=== PATIENT | female | born 1940 | race Caucasian/White ===

== ENCOUNTER 2018-08-09 09:03 | Inpatient (IN) ==
--- NOTE | 2018-08-09 10:04 | ED ---
HPI General Chief complaint: Respiratory Symptoms Stated complaint: SOB complaint Time Seen by Provider: 08/09/18 09:17 History of Present Illness HPI narrative: Patient 77-year-old female presents emergency department with acute on chronic shortness of breath. Patient states she has been gradually worsening shortness of breath over the past 2 years but over the past 3 weeks is been rapidly worsening. States she went to see her primary care physician put her on a Medrol Dosepak and ordered a chest x-ray which she has not yet had done. She is calmly by her son who is concerned that the patient has had shortness of breath with only minimal exertion and walking only a few feet. No fevers, cough is productive of "sputum" which is clear. Symptoms moderate, gradually worsening, associated signs and symptoms in context as above Related Data Home Medications Medication Instructions Recorded Confirmed amlodipine 5 mg PO DAILY 08/09/18 08/09/18 apixaban [Eliquis] 5 mg PO BID 08/09/18 08/09/18 benzonatate 100 mg PO TID PRN 08/09/18 08/09/18 cetirizine 10 mg PO DAILY 08/09/18 08/09/18 doxazosin 2 mg PO DAILY 08/09/18 08/09/18 fenofibrate 160 mg PO DAILY 08/09/18 08/09/18 hydrochlorothiazide 25 mg PO DAILY 08/09/18 08/09/18 levothyroxine 50 mcg PO DAILY 08/09/18 08/09/18 lisinopril 20 mg PO DAILY 08/09/18 08/09/18 pantoprazole 40 mg PO DAILY 08/09/18 08/09/18 rosuvastatin 40 mg PO DAILY 08/09/18 08/09/18 Allergies Allergy/AdvReac Type Severity Reaction Status Date / Time No Known Allergies Allergy Verified 08/09/18 09:08 Review of Systems ROS: all other systems reviewed are negative [facility] Medical History Medical History COPD (chronic obstructive pulmonary disease) (Acute) GERD (gastroesophageal reflux disease) (Acute) Hypercholesterolemia (Acute) Hypertension (Acute) Hypothyroid (Acute) Surgical History Surgical History History of cholecystectomy (Acute) Social History Social History Substance History: No History of Abuse Second Hand Smoke Exposure: No Smoking Status: Former smoker How Often Do You Have a Drink Containing Alcohol: Monthly or less Recent Travel in [facility] within the Last 8 Weeks: No Recent Out of Country Travel within the Last 8 Weeks: No Immunization History Tetanus Immunization: Unsure Exam Narrative Exam Narrative: GENERAL: Well-developed well-nourished in no obvious distress SKIN: Focused skin assessment warm/dry. HEAD: Atraumatic. Normocephalic. EYES: Pupils equal and round. No scleral icterus. No injection or drainage. ENT: No nasal bleeding or discharge. Mucous membranes pink and moist. NECK: Trachea midline. No JVD. CARDIOVASCULAR: Regular rate and rhythm. No murmur appreciated. RESPIRATORY: No accessory muscle use. Clear to auscultation. Breath sounds equal bilaterally. GASTROINTESTINAL: Abdomen soft, non-tender, nondistended. Hepatic and splenic margins not palpable. MUSCULOSKELETAL: No obvious deformities. No clubbing. No cyanosis. No edema. NEUROLOGICAL: Awake and alert. No obvious cranial nerve deficits. Motor grossly within normal limits. Normal speech. PSYCHIATRIC: Appropriate mood and affect; insight and judgment normal. Course Initial Documented Vital Signs Temperature 97.7 F 08/09/18 09:06 Pulse Rate 94 H 08/09/18 09:06 Respiratory Rate 28 H 08/09/18 09:06 Blood Pressure 109/56 L 08/09/18 09:06 Pulse Oximetry 97 08/09/18 09:06 Last Documented Vital Signs Temperature 97.7 F 08/09/18 09:06 Pulse Rate 79 08/09/18 11:15 Respiratory Rate 20 08/09/18 11:15 Blood Pressure 135/61 08/09/18 11:15 Pulse Oximetry 95 08/09/18 10:15 Medical Decision Making MDM Narrative Medical decision making narrative: Patient room in the emergency department, appears only minimally short of breath which resolves upon rest. Significant laboratory finding of a hemoglobin of 6.6. Patient states she was told recently that she was mildly anemic but she is never had to have blood transfusion before. Denies any history of diarrhea denies any melena denies any blood in the stool. She appears quite well. Discussed the risk benefits complications and alternatives to blood transfusion and she is agreeable. 2 units of PRBCs have been ordered. Certainly I think that this level of anemia probably explains her symptoms. Her BNP is mildly elevated and her chest x-ray shows a mild effusion. She was given Rocephin azithromycin given the cough but more likely the patient also has some mild congestive heart failure. Will discuss with medical team for admission Patient fecal occult showed scant brown stool which is Hemoccult negative. No hemorrhoids. CT scan of the abdomen pelvis was added because the patient had been complaining of some distention. Medical Screen Exam Complete: Yes Emergency Medical Condition: Yes Lab Data Result diagrams: 08/09/18 10:00 08/09/18 10:00 Lab Results 08/09/18 08/09/18 08/09/18 Range/Units 10:00 10:00 10:00 WBC 9.6 (4.0-11.0) th/mm3 RBC 2.80 L (4.00-5.30) mil/mm3 Hgb 6.6 L* (11.6-15.3) gm/dL Hct 21.2 L (35.0-46.0) % MCV 75.7 L (80.0-100.0) fL MCH 23.7 L (27.0-34.0) pg MCHC 31.3 L (32.0-36.0) % RDW 17.9 H (11.6-17.2) % Plt Count 394 (150-450) th/mm3 MPV 7.9 (7.0-11.0) fL Neut % (Auto) 83.3 H (16.0-70.0) % Lymph % (Auto) 8.6 L (9.0-44.0) % [place] % (Auto) 7.8 (0.0-8.0) % Eos % (Auto) 0.1 (0.0-4.0) % Baso % (Auto) 0.2 (0.0-2.0) % Neut # (Auto) 8.0 H (1.8-7.7) th/mm3 Lymph # (Auto) 0.8 L (1.0-4.8) th/mm3 [place] # (Auto) 0.7 (0.0-0.9) th/mm3 Eos # (Auto) 0.0 (0.0-0.4) th/mm3 Baso # (Auto) 0.0 (0.0-0.2) th/mm3 WBC Differential . Differential Comment Auto diff final PT 11.3 (9.8-11.6) sec INR 1.1 Ratio APTT 28.0 (23.4-31.7) sec Sodium 139 (136-145) meq/L Potassium 3.9 (3.5-5.1) meq/L Chloride 103 (98-107) meq/L Carbon Dioxide 23.9 (21.0-32.0) meq/L Anion Gap 12 (5-15) meq/L BUN 19 H (7-18) mg/dL Creatinine 1.30 H (0.50-1.00) mg/dL Estimated GFR 40 L (>89) mL/min Random Glucose 133 H (74-106) mg/dL Calcium 8.8 (8.5-10.1) mg/dL Total Bilirubin 0.3 (0.2-1.0) mg/dL AST 5 L (15-37) U/L ALT 11 (10-53) U/L Alkaline Phosphatase 44 L (45-117) U/L Troponin I Less than 0.02 L (0.02-0.05) ng/mL B-Natriuretic Peptide (0-100) pg/mL Total Protein 7.0 (6.4-8.2) g/dL Albumin 3.3 L (3.4-5.0) g/dL Blood Type Blood Type Recheck Antibody Screen MTS Gel Crossmatch 08/09/18 08/09/18 08/09/18 Range/Units 10:40 10:53 10:53 WBC (4.0-11.0) th/mm3 RBC (4.00-5.30) mil/mm3 Hgb (11.6-15.3) gm/dL Hct (35.0-46.0) % MCV (80.0-100.0) fL MCH (27.0-34.0) pg MCHC (32.0-36.0) % RDW (11.6-17.2) % Plt Count (150-450) th/mm3 MPV (7.0-11.0) fL Neut % (Auto) (16.0-70.0) % Lymph % (Auto) (9.0-44.0) % [place] % (Auto) (0.0-8.0) % Eos % (Auto) (0.0-4.0) % Baso % (Auto) (0.0-2.0) % Neut # (Auto) (1.8-7.7) th/mm3 Lymph # (Auto) (1.0-4.8) th/mm3 [place] # (Auto) (0.0-0.9) th/mm3 Eos # (Auto) (0.0-0.4) th/mm3 Baso # (Auto) (0.0-0.2) th/mm3 WBC Differential Differential Comment PT (9.8-11.6) sec INR Ratio APTT (23.4-31.7) sec Sodium (136-145) meq/L Potassium (3.5-5.1) meq/L Chloride (98-107) meq/L Carbon Dioxide (21.0-32.0) meq/L Anion Gap (5-15) meq/L BUN (7-18) mg/dL Creatinine (0.50-1.00) mg/dL Estimated GFR (>89) mL/min Random Glucose (74-106) mg/dL Calcium (8.5-10.1) mg/dL Total Bilirubin (0.2-1.0) mg/dL AST (15-37) U/L ALT (10-53) U/L Alkaline Phosphatase (45-117) U/L Troponin I (0.02-0.05) ng/mL B-Natriuretic Peptide 420 H (0-100) pg/mL Total Protein (6.4-8.2) g/dL Albumin (3.4-5.0) g/dL Blood Type O Negative Blood Type Recheck Required Antibody Screen Negative MTS Gel Crossmatch See Detail Imaging Data Radiologist's impression: Chest X-Ray 08/09/18 09:33 CONCLUSION: Mild cardiomegaly with Central vascular prominence. Right infrahilar opacity which may represent subsegmental consolidation. Left basilar structure characteristic of a hiatal hernia. Discharge Plan Physicians Team ED Provider: Jeff Gomez Primary Care Provider: UNKNOWN, Rxs /Orders / Referrals /Forms Prescriptions: No Action cetirizine 10 mg Tablet 10 mg PO DAILY RF: 0 lisinopril 20 mg Tablet 20 mg PO DAILY RF: 0 amlodipine 5 mg Tablet 5 mg PO DAILY RF: 0 benzonatate 100 mg Capsule 100 mg PO TID PRN (Reason: Cough) RF: 0 levothyroxine 50 mcg Tablet 50 mcg PO DAILY RF: 0 doxazosin 2 mg Tablet 2 mg PO DAILY RF: 0 rosuvastatin 40 mg Tablet 40 mg PO DAILY RF: 0 fenofibrate 160 mg Tablet 160 mg PO DAILY RF: 0 apixaban [Eliquis] 5 mg Tablet 5 mg PO BID RF: 0 pantoprazole 40 mg Tablet,Delayed Release (Dr/Ec) 40 mg PO DAILY RF: 0 hydrochlorothiazide 25 mg Tablet 25 mg PO DAILY RF: 0 Status ED Status: Pending Admission
[2018-08-09 10:07] LABS: Baso % (Auto) 0.2 % (0.0-2.0); Eos % (Auto) 0.1 % (0.0-4.0); Lymph # (Auto) 0.8 th/mm3 (1.0-4.8); Lymph % (Auto) 8.6 % (9.0-44.0); Mean Corpuscular HGB Conc 31.3 % (32.0-36.0); Mean Corpuscular Hemoglobin 23.7 pg (27.0-34.0); Mean Corpuscular Volume 75.7 fL (80.0-100.0); Mean Platelet Volume 7.9 fL (7.0-11.0); Mono # (Auto) 0.7 th/mm3 (0.0-0.9); Mono % (Auto) 7.8 % (0.0-8.0); Neut % (Auto) 83.3 % (16.0-70.0); Platelet Count 394 th/mm3 (150-450); Red Cell Distribution Width 17.9 % (11.6-17.2); White Blood Count 9.6 th/mm3 (4.0-11.0)
--- NOTE | 2018-08-09 10:10 | XR ---
EXAM DATE: 08/09/2018 10:07 AM EST AGE/SEX: 77 years / Female INDICATIONS: . Short of Breath and winded upon walking. CLINICAL DATA: This is the patient's initial encounter. Patient reports that signs and symptoms have been present for 1 day and indicates a pain score of 0/10. MEDICAL/SURGICAL HISTORY: Chronic obstructive pulmonary disease. None. COMPARISON: [facility], XR CHEST PA AND LAT, 04/19/2016. . FINDINGS: Lungs are hypoaerated. Right infrahilar opacity has developed. Heart is mildly enlarged. Retrocardiac density characteristic of a hiatal hernia is noted. Mild central vascular prominence is noted. CONCLUSION: Mild cardiomegaly with Central vascular prominence. Right infrahilar opacity which may represent subsegmental consolidation. Left basilar structure characteristic of a hiatal hernia. Electronically signed by: Jay Brown MD Board Certified Radiologist 08/09/2018 10:09 AM EST
[2018-08-09 10:16] LABS: Hematocrit 21.2 % (35.0-46.0); Hemoglobin 6.6 gm/dL (11.6-15.3); INR 1.1 Ratio; Prothrombin Time 11.3 sec (9.8-11.6)
[2018-08-09 10:24] LABS: Albumin 3.3 g/dL (3.4-5.0); Anion Gap 12 meq/L (5-15); Aspartate Aminotransferase 5 U/L (15-37); Blood Urea Nitrogen 19 mg/dL (7-18); Calcium 8.8 mg/dL (8.5-10.1); Carbon Dioxide 23.9 meq/L (21.0-32.0); Chloride 103 meq/L (98-107); Glomerular Filtration Rate 40 mL/min (>89); Glucose,Random 133 mg/dL (74-106); Potassium 3.9 meq/L (3.5-5.1); Sodium 139 meq/L (136-145)
[2018-08-09 10:25] LABS: Alanine Aminotransferase 11 U/L (10-53)
[2018-08-09] MEDS ORDERED: Azithromycin Inj 500 MG in Sodium Chlor 0.9% Inj 250 ML IV.SIG ONE (10:27)
[2018-08-09 10:29] LABS: Alkaline Phosphatase 44 U/L (45-117)
[2018-08-09] MEDS ORDERED: Sodium Chlor 0.9% Inj 250 ML IV.SIG SCH (11:00)
--- NOTE | 2018-08-09 12:42 | CT ---
EXAM DATE: 08/09/2018 12:08 PM EST AGE/SEX: 77 years / Female INDICATIONS: Right upper quadrant pain and distention. CLINICAL DATA: This is the patient's initial encounter. Patient reports that signs and symptoms have been present for 4 - 6 days and indicates a pain score of 5/10. MEDICAL/SURGICAL HISTORY: Chronic obstructive pulmonary disease. Gastroesophageal reflux disea se. Hypertension. None. ORAL CONTRAST: No oral contrast ingested. RADIATION DOSE: 14.49 CTDI (mGy) COMPARISON: No prior exams available for comparison. TECHNIQUE: Multiple contiguous axial images were obtained through the abdomen and pelvis following b olus infusion of 97 ml Omnipaque 350 (iohexol) nonionic water-soluble contrast as a single exam dos e. No oral contrast ingested. Using automated exposure control and adjustment of the mA and/or kV ac cording to patient size, radiation dose was kept as low as reasonably achievable to obtain optimal di agnostic quality images. DICOM format image data is available electronically for review and comparis on. FINDINGS: Lower Lungs: The visualized lower lungs are clear. Liver: The liver has a homogeneous density without space-occupying lesion. There is no dilation of th e biliary tree. Post cholecystectomy clips are noted. Spleen: Homogeneous density without enlargement. Pancreas: Unremarkable without mass or calcification. Kidneys: Normal in size and shape. No evidence of mass or hydronephrosis. Adrenal Glands: Unremarkable. Aorta: Calcified plaque is evident throughout the abdominal aorta. There is focal plaque at the leonid gin of the celiac and superior mesenteric arteries. Mild to moderate stenosis is noted. Bowel/Mesentery: Scattered diverticula are present throughout the colon. There are no active inflamm atory changes. There is no evidence of ileus, free air or abnormal fluid collections. The bowel loops are grossly unremarkable. The cecum and sigmoid colon have a normal configuration. Abdominal Wall: Intact. Retroperitoneum: No evidence of adenopathy in the retrocrural, para-aortic, or deep pelvic regions. Bladder: Contours are smooth. Reproductive Organs: No abnormal masses or calcifications seen. Inguinal: The inguinal region is unremarkable without evidence of adenopathy. Bony Structures: Unremarkable. CONCLUSION: 1. Calcific atherosclerotic vascular disease with calcified plaque identified at the origin of the c eliac and superior mesenteric arteries. 2. Uncomplicated colonic diverticulosis. 3. No evidence of ileus, free air or abnormal fluid collections. 4. Status post cholecystectomy. Electronically signed by: Jay Brown MD Board Certified Radiologist 08/09/2018 12:41 PM EST
[2018-08-09 13:34] LABS: % Iron Saturation 1.8 % (20-50)
[2018-08-09] MEDS ORDERED: Acetaminophen 325 MG Tablet PO PRN (14:00)
[2018-08-09] MEDS ORDERED: hydrALAZINE 25 MG Tablet PO PRN ×2 (14:00→18:44)
--- NOTE | 2018-08-09 15:41 | P.HP ---
History of Present Illness Primary Care Physician: UNKNOWN Chief Complaint: Severe shortness of breath History of Present Illness: 77-year-old female with past medical history of hypertension presented to the ED for evaluation of worsening shortness of breath with minimal exertion times 3 weeks duration. She reports chronic shortness of breath over the past 2 years which has gotten worse recently. She was seen by her primary care physician's, and was prescribed Medrol Dosepak and a chest x- ray was ordered which has yet to be done. She presented today to the ED because shortness of breath is now worsening with only minimal exertion on walking less than few feet. Patient also complained of dry cough. Patient denies any chest pain or current GI bleed. In the ED, she was found to have H& H of 6.6/21.2 and a BNP of 420. Hemoccult was negative. Of note, patient is currently on Eliquis, however denies any history of DVT, PE or atrial fibrillation. Review of Systems All other systems reviewed negative except as stated in HPI [facility] - History History Provided By: Patient - Medical History Medical History: Medical History (Last Reviewed 08/10/18 @ 07:34 by Mehreen Washington) COPD (chronic obstructive pulmonary disease) GERD (gastroesophageal reflux disease) Hypercholesterolemia Hypertension Hypothyroid - Surgical History Surgical History: Surgical History (Last Reviewed 08/10/18 @ 07:34 by Mehreen Washington) History of cholecystectomy - Family History Family History: Family History (Last Updated 08/09/18 @ 15:28 by Clive Tapia MD) Other CAD (coronary artery disease) - Tobacco History Second Hand Smoke Exposure: No Tobacco Use In Past 30 Days: No Smoking Status: Former smoker - Alcohol History How Often Do You Have a Drink Containing Alcohol: Monthly or less - Substance Use History Substance History: No History of Abuse - Travel History Recent Travel in the [place] Within the Last 8 Weeks: No Recent Travel Out of the Country Within the Last 8 Weeks: No - Immunization History Tetanus Immunization: Unsure Medications and Allergies Active Medications: Active Medications Acetaminophen (Tylenol) 650 mg PO Q4H PRN PRN Reason: Temp > 100.4 Al Hydroxide/Mg Hydroxide (Milk Of Magnesia Liq) 30 ml PO Q12H PRN PRN Reason: Mild Constipation Albuterol (Duoneb Neb (Prn)) 1 ampul NEB Q2HR NEB PRN PRN Reason: SHORTNESS OF BREATH Amlodipine Besylate (Norvasc) 5 mg PO DAILY [facility] Atorvastatin Calcium (Lipitor) 80 mg PO DAILY [facility] Doxazosin Mesylate (Cardura) 2 mg PO DAILY [facility] Furosemide (Lasix Inj) 40 mg IV.PUSH ONCE PRN PRN Reason: Inbetween PRBC units Last Admin: 08/09/18 14:12 Dose: 40 mg Furosemide (Lasix Inj) 40 mg IV.PUSH BID@0900,1800 [facility] Hydralazine HCl (Apresoline) 25 mg PO TID PRN PRN Reason: SBP>160, DBP>90 Sodium Chloride (Ns Inj) 250 mls @ 15 mls/hr IV.SIG ONCE [facility] Stop: 08/10/18 03:39 Last Admin: 08/09/18 13:06 Dose: 15 mls/hr Levothyroxine Sodium (Synthroid) 50 mcg PO DAILY@0600 [facility] Lisinopril (Prinivil) 20 mg PO DAILY [facility] Non-Formulary Medication (Fenofibrate [Fenofibrate]) 160 mg PO DAILY [facility] Ondansetron HCl (Zofran Inj) 4 mg IV.PUSH Q6H PRN PRN Reason: NAUSEA OR VOMITING Pantoprazole Sodium (Protonix) 40 mg PO DAILY [facility] Sodium Chloride (Ns Flush) 2 ml IV.FLUSH UNSCH PRN PRN Reason: FLUSH AFTER USING IV ACCESS Last Admin: 08/09/18 14:13 Dose: 2 ml Sodium Chloride (Ns Flush) 2 ml IV.FLUSH BID [facility] Sodium Chloride (Ns Flush) 2 ml IV.FLUSH PRN PRN PRN Reason: FLUSH AFTER USING IV ACCESS Allergies Allergy/AdvReac Type Severity Reaction Status Date / Time No Known Allergies Allergy Verified 08/09/18 09:08 Home Medications Medication Instructions Recorded Confirmed Type amlodipine 5 mg PO DAILY 08/09/18 08/09/18 History apixaban [Eliquis] 5 mg PO BID 08/09/18 08/09/18 History benzonatate 100 mg PO TID PRN 08/09/18 08/09/18 History cetirizine 10 mg PO DAILY 08/09/18 08/09/18 History doxazosin 2 mg PO DAILY 08/09/18 08/09/18 History fenofibrate 160 mg PO DAILY 08/09/18 08/09/18 History hydrochlorothiazide 25 mg PO DAILY 08/09/18 08/09/18 History levothyroxine 50 mcg PO DAILY 08/09/18 08/09/18 History lisinopril 20 mg PO DAILY 08/09/18 08/09/18 History pantoprazole 40 mg PO DAILY 08/09/18 08/09/18 History rosuvastatin 40 mg PO DAILY 08/09/18 08/09/18 History Exam Vital signs: Vital Signs 08/09/18 09:06 08/09/18 09:08 08/09/18 09:36 Temperature 97.7 F Pulse Rate 94 H 89 Respiratory Rate 28 H 20 Blood Pressure 109/56 L 133/70 Pulse Oximetry 97 97 97 08/09/18 10:15 08/09/18 11:15 08/09/18 13:16 Temperature 98.2 F Pulse Rate 79 79 100 H Respiratory Rate 20 20 17 Blood Pressure 129/60 135/61 120/56 L Pulse Oximetry 95 96 08/09/18 13:31 08/09/18 14:01 08/09/18 14:20 Temperature 98.3 F 98.8 F 98.6 F Pulse Rate 90 75 84 Respiratory Rate 20 20 20 Blood Pressure 125/57 L 147/67 H 144/60 H Pulse Oximetry 96 98 98 08/09/18 14:42 Temperature Pulse Rate 92 H Respiratory Rate 18 Blood Pressure 144/60 H Pulse Oximetry 96 Intake & Output 08/08/18 08/09/18 08/09/18 18:59 06:59 18:59 Intake Total 750 / 750 Balance 750 / 750 Weight 80.739 kg Intake: IV 350 / 350 Azithromycin Inj 500 MG In NS 250 / 250 Inj 250 ML @ 250 mls/hr IV.SIG ONCE ONE Rx#:[id number] Rocephin Inj 1,000 MG In NS Inj 100 / 100 100 ML @ 200 mls/hr IV.SIG ONCE ONE Rx#:[id number] Intake (Blood Product) Amt 400 / 400 Rbc As-3 Leukoreduced Unit 400 / 400 [id number] Rbc As-3 Leukoreduced Unit 0 / 0 [id number] Narrative: GENERAL: NAD SKIN: Warm and dry. HEAD: Atraumatic. Normocephalic. EYES: Pupils equal and round. No scleral icterus. No injection or drainage. ENT: No nasal bleeding or discharge. Mucous membranes pink and moist. NECK: Trachea midline. No JVD. CARDIOVASCULAR: Regular rate and rhythm. RESPIRATORY: No accessory muscle use. Clear to auscultation. Breath sounds equal bilaterally. GASTROINTESTINAL: Abdomen soft, non-tender, nondistended. Hepatic and splenic margins not palpable. MUSCULOSKELETAL: Extremities without clubbing, cyanosis, or edema. No obvious deformities. NEUROLOGICAL: Awake and alert. No obvious cranial nerve deficits. Motor grossly within normal limits. Five out of 5 muscle strength in the arms and legs. Normal speech. PSYCHIATRIC: Appropriate mood and affect; insight and judgment normal. Results - Labs CBC & Chem 7: 08/10/18 06:41 08/09/18 10:00 Labs: Laboratory Results - last 24 hr 08/09/18 08/09/18 08/09/18 10:00 10:00 10:00 WBC 9.6 RBC 2.80 L Hgb 6.6 L* Hct 21.2 L MCV 75.7 L MCH 23.7 L MCHC 31.3 L RDW 17.9 H Plt Count 394 MPV 7.9 Neut % (Auto) 83.3 H Lymph % (Auto) 8.6 L [place] % (Auto) 7.8 Eos % (Auto) 0.1 Baso % (Auto) 0.2 Neut # (Auto) 8.0 H Lymph # (Auto) 0.8 L [place] # (Auto) 0.7 Eos # (Auto) 0.0 Baso # (Auto) 0.0 WBC Differential . Differential Comment Auto diff final PT 11.3 INR 1.1 APTT 28.0 Sodium 139 Potassium 3.9 Chloride 103 Carbon Dioxide 23.9 Anion Gap 12 BUN 19 H Creatinine 1.30 H Estimated GFR 40 L Random Glucose 133 H Calcium 8.8 Iron TIBC % Saturation Ferritin Total Bilirubin 0.3 AST 5 L ALT 11 Alkaline Phosphatase 44 L Troponin I Less than 0.02 L B-Natriuretic Peptide Total Protein 7.0 Albumin 3.3 L Blood Type Blood Type Recheck Antibody Screen MTS Gel Crossmatch 08/09/18 08/09/18 08/09/18 10:00 10:40 10:53 WBC RBC Hgb Hct MCV MCH MCHC RDW Plt Count MPV Neut % (Auto) Lymph % (Auto) [place] % (Auto) Eos % (Auto) Baso % (Auto) Neut # (Auto) Lymph # (Auto) [place] # (Auto) Eos # (Auto) Baso # (Auto) WBC Differential Differential Comment PT INR APTT Sodium Potassium Chloride Carbon Dioxide Anion Gap BUN Creatinine Estimated GFR Random Glucose Calcium Iron 11 L TIBC 596 H % Saturation 1.8 L Ferritin 4 L Total Bilirubin AST ALT Alkaline Phosphatase Troponin I B-Natriuretic Peptide 420 H Total Protein Albumin Blood Type O Negative Blood Type Recheck Required Antibody Screen Negative MTS Gel Crossmatch 08/09/18 10:53 WBC RBC Hgb Hct MCV MCH MCHC RDW Plt Count MPV Neut % (Auto) Lymph % (Auto) [place] % (Auto) Eos % (Auto) Baso % (Auto) Neut # (Auto) Lymph # (Auto) [place] # (Auto) Eos # (Auto) Baso # (Auto) WBC Differential Differential Comment PT INR APTT Sodium Potassium Chloride Carbon Dioxide Anion Gap BUN Creatinine Estimated GFR Random Glucose Calcium Iron TIBC % Saturation Ferritin Total Bilirubin AST ALT Alkaline Phosphatase Troponin I B-Natriuretic Peptide Total Protein Albumin Blood Type Blood Type Recheck Antibody Screen MTS Gel Crossmatch See Detail - Imaging Impressions Chest X-Ray 08/09/18 09:33 CONCLUSION: Mild cardiomegaly with Central vascular prominence. Right infrahilar opacity which may represent subsegmental consolidation. Left basilar structure characteristic of a hiatal hernia. Abdomen/Pelvis CT 08/09/18 10:27 CONCLUSION: 1. Calcific atherosclerotic vascular disease with calcified plaque identified at the origin of the celiac and superior mesenteric arteries. 2. Uncomplicated colonic diverticulosis. 3. No evidence of ileus, free air or abnormal fluid collections. 4. Status post cholecystectomy. Caprini VTE Risk Assessment Caprini VTE Risk Assessment: Moderate/High Risk (score >= 2) Caprini Risk Assessment Model: Point Value = 1 Point Value = 2 Point Value = 3 Point Value = 5 Age 41-60 Minor surgery BMI > 25 kg/m2 Swollen legs Varicose veins or History of unexplained or recurrent spontaneous Oral contraceptives or hormone replacement Sepsis (< 1 month) Serious lung disease, including pneumonia (< 1 month) Abnormal pulmonary function Acute myocardial infarction Congestive heart failure (< 1 month) History of inflammatory bowel disease Medical patient at bed rest Age 61-74 Arthroscopic surgery Major open surgery (> 45 min) Laparoscopic surgery (> 45 min) Malignancy Confined to bed (> 72 hours) Immobilizing plaster cast Central venous access Age >= 75 History of VTE Family history of VTE Factor V Leiden Prothrombin [id number] Lupus anticoagulant Anticardiolipin antibodies Elevated serum homocysteine Heparin-induced thrombocytopenia Other congenital or acquired thrombophilia Stroke (< 1 month) Elective arthroplasty Hip, pelvis, or leg fracture Acute spinal cord injury (< 1 month) Prophylaxis Regimen: Total Risk Factor Score Risk Level Prophylaxis Regimen 0-1 Low Early ambulation 2 Moderate Order ONE of the following: *Sequential Compression Device (SCD) *Heparin 5000 units SQ BID 3-4 Higher Order ONE of the following medications: *Heparin 5000 units SQ TID *Enoxaparin/Lovenox 40 mg SQ daily (WT < 150 kg, CrCl > 30 mL/min) *Enoxaparin/Lovenox 30 mg SQ daily (WT < 150 kg, CrCl > 10-29 mL/min) *Enoxaparin/Lovenox 30 mg SQ BID (WT < 150 kg, CrCl > 30 mL/min) AND/OR *Sequential Compression Device (SCD) 5 or more Highest Order ONE of the following medications: *Heparin 5000 units SQ TID (Preferred with Epidurals) *Enoxaparin/Lovenox 40 mg SQ daily (WT < 150 kg, CrCl > 30 mL/min) *Enoxaparin/Lovenox 30 mg SQ daily (WT < 150 kg, CrCl > 10-29 mL/min) *Enoxaparin/Lovenox 30 mg SQ BID (WT < 150 kg, CrCl > 30 mL/min) AND *Sequential Compression Device (SCD) Assessment and Plan - Plan 67-year-old female with Symptomatic anemia Hemoccult negative Transfused 2 units of packed red blood cell, give Lasix IV x1 in between Check iron studies, ferritin, B12 level Hold Eliquis Recommend outpatient follow-up with GI H&H monitoring CHF exacerbation of unknown type Chest x-ray noted and reviewed by me with finding of Mild cardiomegaly with Central vascular prominence Will start Lasix 20 mg IV every 12 hours Strict I's and O's Check 2D echo and resume RODRI inhibitor Dyspnea Multifactorial In The absence of chest pain, will hold on CTA pulmonary to r/o PE Treatment as an above 2D echo pending DuoNeb as needed Hypertension Resume outpatient medications Abdominal pain Abdominal CT noted and reviewed by me without any evidence of ileus, free air or abnormal fluid collections Conservative management Chest x-ray with finding of Right infrahilar opacity which may represent subsegmental consolidation. However patient currently afebrile and no leukocytosis, therefore will hold on continue antibiotics Continue to monitor clinical response Hyperlipidemia Resume Lipitor Hypothyroidism Check TSH and free T4 Resume Synthroid Patient is currently on Eliquis however denies any history of PE, DVT or A. fib
[2018-08-09 16:27] LABS: Free T4 (Free Thyroxine) 1.36 ng/dL (0.76-1.46); Vitamin B12 1793 pg/mL (193-986)
--- NOTE | 2018-08-09 17:48 | ECG ---
Date Performed: 08/09/2018 Time Performed: 09:25:30 PTAGE: 77 years EKG: Sinus rhythm WITH MARKED SINUS ARRHYTHMIA MODERATE ST DEPRESSION ABNORMAL ECG NO PREVIOUS TRACING DOCTOR: Prashant Turner Interpretating Date/Time 08/09/2018 17:47:53
[2018-08-10] MEDS: Levothyroxine 50 MCG Tablet PO SCH (05:28)
[2018-08-10 07:11] LABS: Baso # (Auto) 0.1 th/mm3 (0.0-0.2); Baso % (Auto) 0.5 % (0.0-2.0); Eos # (Auto) 0.1 th/mm3 (0.0-0.4); Eos % (Auto) 1.2 % (0.0-4.0); Hematocrit 29.2 % (35.0-46.0); Hemoglobin 9.7 gm/dL (11.6-15.3); Lymph # (Auto) 1.6 th/mm3 (1.0-4.8); Lymph % (Auto) 13.8 % (9.0-44.0); Mean Corpuscular HGB Conc 33.3 % (32.0-36.0); Mean Corpuscular Hemoglobin 25.9 pg (27.0-34.0); Mean Corpuscular Volume 77.7 fL (80.0-100.0); Mean Platelet Volume 7.5 fL (7.0-11.0); Mono # (Auto) 1.6 th/mm3 (0.0-0.9); Mono % (Auto) 14.1 % (0.0-8.0); Neut # (Auto) 8.1 th/mm3 (1.8-7.7); Neut % (Auto) 70.4 % (16.0-70.0); Platelet Count 340 th/mm3 (150-450); Red Blood Count 3.76 mil/mm3 (4.00-5.30); Red Cell Distribution Width 19.5 % (11.6-17.2); White Blood Count 11.5 th/mm3 (4.0-11.0)
[2018-08-10 07:37] LABS: Alanine Aminotransferase 13 U/L (10-53); Albumin 3.2 g/dL (3.4-5.0); Anion Gap 8 meq/L (5-15); Aspartate Aminotransferase 10 U/L (15-37); Blood Urea Nitrogen 19 mg/dL (7-18); Calcium 8.4 mg/dL (8.5-10.1); Carbon Dioxide 31.6 meq/L (21.0-32.0); Chloride 99 meq/L (98-107); Glomerular Filtration Rate 45 mL/min (>89); Glucose,Random 91 mg/dL (74-106); Sodium 139 meq/L (136-145)
[2018-08-10 07:45] LABS: Alkaline Phosphatase 45 U/L (45-117); Total Protein 6.6 g/dL (6.4-8.2)
[2018-08-10] MEDS: Lisinopril 20 MG Tablet PO SCH (08:54)
[2018-08-10] MEDS: Fenofibrate 145 MG Tablet PO SCH (08:54)
[2018-08-10] MEDS: amLODIPine 5 MG Tablet PO SCH (08:55)
--- NOTE | 2018-08-10 12:52 | P.PNIM ---
Subjective Interval history: The patient is in the chair says she feels much better after the blood transfusion. Says she was able to walk to the bathroom however still with some shortness of breath. Says she is coughing and also she has noticed her voice has changed but that is all problem and I advised patient to follow- up with ENT as outpatient. She has a lower extremity edema. No wheezing at this time. No nausea or vomiting. Did not have a bowel movement. Says she does not know why she is taking Eliquis never had stroke, pulmonary embolism, A. fib or any arrhythmia and no DVT. Will discontinue Eliquis. Physical Exam Vital signs: Last Vital Signs Temp 98.4 F 08/10/18 08:41 Pulse 61 08/10/18 08:41 Resp 18 08/10/18 08:41 BP 122/55 L 08/10/18 08:41 Pulse Ox 95 08/10/18 08:41 Intake & Output 08/08/18 08/09/18 08/10/18 08/11/18 06:59 06:59 06:59 06:59 Intake Total 1880 / 1880 Output Total 1604 / 1604 Balance 276 / 276 Weight 81.3 kg Narrative: GENERAL: Elderly female, appears in NAD CARDIOVASCULAR: Regular rate and rhythm. RESPIRATORY: No accessory muscle use. Clear to auscultation. Breath sounds equal bilaterally. GASTROINTESTINAL: Abdomen soft, non-tender, nondistended. Hepatic and splenic margins not palpable. MUSCULOSKELETAL: Extremities without clubbing, cyanosis, or edema. No obvious deformities. NEUROLOGICAL: Awake and alert. No obvious cranial nerve deficits. Motor grossly within normal limits. Five out of 5 muscle strength in the arms and legs. Normal speech. Results Labs CBC & Chem 7: 08/10/18 06:41 08/10/18 06:41 Assessment and Plan Plan 67-year-old female with Symptomatic anemia Hemoccult negative S/p Transfusion 2 units of packed red blood cell, give Lasix IV x1 in between Check iron studies, ferritin, B12 level Hold Eliquis Recommend outpatient follow-up with GI H&H monitoring. So far H/H is stable CHF exacerbation of unknown type BNP elevated on admission Chest x-ray reviewed mild cardiomegaly with Central vascular prominence Lasix 20 mg IV every 12 hours Strict I's and O's 2D echo pnding and resume RODRI inhibitor Dyspnea Multifactorial In The absence of chest pain, will hold on CTA pulmonary to r/o PE Treatment as an above 2D echo pending DuoNeb as needed Hypertension Resume outpatient medications Abdominal pain Abdominal CT noted and reviewed by me without any evidence of ileus, free air or abnormal fluid collections Conservative management Chest x-ray with finding of Right infrahilar opacity which may represent subsegmental consolidation. However patient currently afebrile and no leukocytosis, therefore will hold on continue antibiotics Continue to monitor clinical response Hyperlipidemia Resume Lipitor Hypothyroidism Check TSH and free T4 Resume Synthroid DVT ppx scd.tds, hold chemical ppx to anemia. Patient is currently on Eliquis however denies any history of PE, DVT or A. fib. Will discontinue Eliquis Discussed with the patient, family at bedside very supportive, nurse. Progress Note: Quality VTE Deep Vein Thrombosis/Pulmonary Embolism Present on Admission: No
[2018-08-11] MEDS: Levothyroxine 50 MCG Tablet PO SCH (05:22)
[2018-08-11] MEDS: Lisinopril 20 MG Tablet PO SCH (09:07)
[2018-08-11] MEDS: amLODIPine 5 MG Tablet PO SCH (09:07)
[2018-08-11] MEDS: Fenofibrate 145 MG Tablet PO SCH (09:07)
--- NOTE | 2018-08-11 11:17 | P.PNIM ---
Subjective Interval history: The patient appears in not acute distress. However she is still coughing and she has changing her voice or hoarseness and would like to see the ENT doctor as inpatient. Will consult ENT for evaluation. Patient also with severe iron deficiency will start Venofer IV. GI also consulted and plans for colonoscopy on Saturday. Patient still weak and with some shortness of breath however feeling better after she received blood transfusion. No nausea or vomiting. No diarrhea constipation. Has some lower extremity edema improving. Physical Exam Vital signs: Last Vital Signs Temp 98.4 F 08/11/18 08:00 Pulse 80 08/11/18 10:05 Resp 18 08/11/18 10:05 BP 133/70 08/11/18 08:00 Pulse Ox 95 08/11/18 10:05 Intake & Output 08/09/18 08/10/18 08/11/18 08/12/18 06:59 06:59 06:59 06:59 Intake Total 1880 / 1880 Output Total 1604 / 1604 Balance 276 / 276 Weight 81.3 kg Narrative: GENERAL: Elderly female, appears in NAD CARDIOVASCULAR: Regular rate and rhythm. RESPIRATORY: No accessory muscle use. Clear to auscultation. Breath sounds equal bilaterally. GASTROINTESTINAL: Abdomen soft, non-tender, nondistended. Hepatic and splenic margins not palpable. MUSCULOSKELETAL: Extremities without clubbing, cyanosis, or edema. No obvious deformities. NEUROLOGICAL: Awake and alert. No obvious cranial nerve deficits. Motor grossly within normal limits. Five out of 5 muscle strength in the arms and legs. Normal speech. Results Labs CBC & Chem 7: 08/10/18 06:41 08/10/18 06:41 Assessment and Plan Plan 67-year-old female with Symptomatic anemia Hemoccult negative S/p Transfusion 2 units of packed red blood cell, give Lasix IV x1 in between Check iron studies, ferritin, B12 level . B12 is normal. Patien thowever with severe iron deficienecy , start venofer IV , will start iron supplement also to have at [facility], the patient says she is not sure why she is taking it. Consult GI, plan for colonoscopy on Saturday H&H monitoring. So far H/H is stable CHF exacerbation of unknown type BNP elevated on admission Chest x-ray reviewed mild cardiomegaly with Central vascular prominence Lasix 20 mg IV every 12 hours Strict I's and O's 2D echo pnding and resume RODRI inhibitor Dyspnea Multifactorial In The absence of chest pain, will hold on CTA pulmonary to r/o PE Treatment as an above 2D echo pending DuoNeb as needed Hypertension Resume outpatient medications Abdominal pain Abdominal CT noted and reviewed by me without any evidence of ileus, free air or abnormal fluid collections Conservative management Chest x-ray with finding of Right infrahilar opacity which may represent subsegmental consolidation. However patient currently afebrile and no leukocytosis, therefore will hold on continue antibiotics Continue to monitor clinical response Hyperlipidemia Resume Lipitor Hypothyroidism Check TSH and free T4 Resume Synthroid Hoarseness: Consult ENT DVT ppx scd.tds, hold chemical ppx to anemia. Patient is currently on Eliquis however denies any history of PE, DVT or A. fib. Will discontinue Eliquis Discussed with the patient, family at bedside very supportive, nurse. Progress Note: Quality VTE Deep Vein Thrombosis/Pulmonary Embolism Present on Admission: No
--- NOTE | 2018-08-11 14:27 | ECHRPT ---
Indication: SHORTNESS OF BREATH CONCLUSIONS Normal left ventricular size. Wall thickness is measured at the upper limits of normal. The left ventricular systolic function is normal with an estimated ejection fraction in the range of 55-60%. Moderate thickening of the mitral valve leaflets. Mitral annular calcification is present. Trace mitral valve regurgitation. Moderate mitral valve stenosis. Aortic valve sclerosis is present. Diffuse calcification of the aortic valve. Mild aortic valve stenosis. There is trace tricuspid valve regurgitation. The estimated pulmonary arterial pressure is 46 mmHg. BP: / HR: Rhythm: Sinus, PACs MEASUREMENTS (Male / Female) Normal Values Technical Quality:Poor 2D ECHO LV Diastolic Diameter PLAX 4.7 cm 4.2 - 5.9 / 3.9 - 5.3 cm LV Systolic Diameter PLAX 3.6 cm IVS Diastolic Thickness 1.1 cm 0.6 - 1.0 / 0.6 - 0.9 cm LVPW Diastolic Thickness 1.1 cm 0.6 - 1.0 / 0.6 - 0.9 cm LV Relative Wall Thickness 0.5 RV Internal Dim ED PLAX 3.0 cm LVOT Diameter 1.9 cm Aortic Root Diameter 2.6 cm DOPPLER AV Peak Velocity 302.5 cm/s AV Peak Gradient 36.6 mmHg AV Mean Gradient 20.0 mmHg AV Velocity Time Integral 63.9 cm LVOT Peak Velocity 165.5 cm/s LVOT Peak Gradient 11.0 mmHg LVOT Velocity Time Integral 37.0 cm AV Area Cont Eq vti 1.6 cm AV Area Cont Eq pk 1.6 cm MV Peak Velocity 190.8 cm/s MV Peak Gradient 14.6 mmHg MV Mean Velocity 118.8 cm/s MV Mean Gradient 6.6 mmHg Mitral E Point Velocity 159.0 cm/s Mitral A Point Velocity 154.0 cm/s Mitral E to A Ratio 1.0 LV E' Lateral Velocity 9.2 cm/s Mitral E to LV E' Lateral Ratio 17.4 LV E' Septal Velocity 6.5 cm/s Mitral E to LV E' Septal Ratio 24.3 TR Peak Velocity 299.0 cm/s TR Peak Gradient 35.8 mmHg Right Atrial Pressure 10.0 mmHg Pulmonary Artery Systolic Pressu 45.8 mmHg Right Ventricular Systolic Press 45.8 mmHg PV Peak Velocity 156.0 cm/s PV Peak Gradient 9.7 mmHg FINDINGS LEFT VENTRICLE Normal left ventricular size. Wall thickness is measured at the upper limits of normal. The left ventricular systolic function is normal with an estimated ejection fraction in the range of 55-60%. RIGHT VENTRICLE Normal right ventricular size and systolic function. LEFT ATRIUM The left atrial size is normal. RIGHT ATRIUM The right atrial size is normal. ATRIAL SEPTUM Normal atrial septal thickness without atrial level shunting by limited color doppler interrogation. AORTA The aortic root and proximal ascending aorta are normal in size on limited imaging. MITRAL VALVE Moderate thickening of the mitral valve leaflets. Mitral annular calcification is present. Trace mitral valve regurgitation. Moderate mitral valve stenosis. AORTIC VALVE Aortic valve sclerosis is present. Diffuse calcification of the aortic valve. Mild aortic valve stenosis. TRICUSPID VALVE There is trace tricuspid valve regurgitation. The estimated pulmonary arterial pressure is 46 mmHg. PULMONARY VALVE No pulmonary valve regurgitation or stenosis. VESSELS The inferior vena cava is normal in size. PERICARDIUM No pericardial effusion. Cayetano Sampson MD, FACC (Electronically Signed) Final Date:11 August 2018 14:26
--- NOTE | 2018-08-11 15:06 | P.CONGI ---
History of Present Illness Consult date: 08/11/18 Consult reason: Anemia Possible GI bleed Chief complaint: Anemia, SOB History of Present Illness: Patient is a pleasant 77-year-old female with past medical history significant for hypertension, COPD, GERD, hypercholesteremia and hypothyroidism. Surgical history significant for tubal ligation and cholecystectomy. Patient presented to [facility] emergency room with complaint of worsening shortness of breath with minimal exertion for 2-3 weeks. Patient endorsed shortness of breath but denied any fever or chills. Upon arrival to ED, patient was found to have hemoglobin of 6.6 hematocrit 21.2 , BNP of 420. Hemoccult stool was negative. Of note, patient states that she has been on Eliquis for the last 2-3 months. She denies any noted history of atrial fibrillation, PAD, DVT or CVA. Patient states last colonoscopy and EGD done 2 years ago per her recollection. EGD revealed hiatal hernia per patient. Colonoscopy did not reveal any abnormal findings per patient. 08/10/2018 hemoglobin 9.7 hematocrit 29.2 post 2 units of packed blood cell transfusion. Of note, iron studies reveal iron level 11 TIBC 596 saturation 1.8 ferritin level 4. Our service has been consulted to evaluate patient for anemia/possible GI bleeding. <Zuleyma Laureano - Last Filed: 08/11/18 14:53> Review of Systems All other systems reviewed negative except as stated in HPI <Zuleyma Laureano - Last Filed: 08/11/18 14:53> PMFSH - History History Provided By: Patient - Medical History Medical History: Medical History (Last Reviewed 08/10/18 @ 07:34 by Mehreen Washington) COPD (chronic obstructive pulmonary disease) GERD (gastroesophageal reflux disease) Hypercholesterolemia Hypertension Hypothyroid - Surgical History Surgical History: Surgical History (Last Reviewed 08/10/18 @ 07:34 by Mehreen Washington) History of cholecystectomy - Family History Family History: Family History (Last Updated 08/09/18 @ 15:28 by Clive Tapia MD) Other CAD (coronary artery disease) - Tobacco History Second Hand Smoke Exposure: No Tobacco Use In Past 30 Days: No Smoking Status: Former smoker Tobacco Type: Cigarettes - Alcohol History How Often Do You Have a Drink Containing Alcohol: Monthly or less - Substance Use History Substance History: No History of Abuse - Travel History Recent Travel in the [facility] Within the Last 8 Weeks: No Recent Travel Out of the Country Within the Last 8 Weeks: No - Immunization History Tetanus Immunization: Unsure Hx Influenza Vaccine This Season: No <LaureanoZuleyma lott - Last Filed: 08/11/18 14:53> - Medical History Medical History: Medical History (Last Reviewed 08/10/18 @ 07:34 by Mehreen Washington) COPD (chronic obstructive pulmonary disease) GERD (gastroesophageal reflux disease) Hypercholesterolemia Hypertension Hypothyroid - Surgical History Surgical History: Surgical History (Last Reviewed 08/10/18 @ 07:34 by Mehreen Washington) History of cholecystectomy - Family History Family History: Family History (Last Updated 08/09/18 @ 15:28 by Clive Tapia MD) Other CAD (coronary artery disease) <Donald Bassett - Last Filed: 08/12/18 10:53> Medications and Allergies Active Medications: Active Medications Acetaminophen (Tylenol) 650 mg PO Q4H PRN PRN Reason: Temp > 100.4 Al Hydroxide/Mg Hydroxide (Milk Of Marquita Prakash) 30 ml PO Q12H PRN PRN Reason: Mild Constipation Last Admin: 08/10/18 20:18 Dose: 30 ml Albuterol (Duoneb Neb (Prn)) 1 ampul NEB Q2HR NEB PRN PRN Reason: SHORTNESS OF BREATH Last Admin: 08/11/18 10:05 Dose: 1 ampul Amlodipine Besylate (Norvasc) 5 mg PO DAILY [facility] Last Admin: 08/11/18 09:07 Dose: 5 mg Atorvastatin Calcium (Lipitor) 80 mg PO DAILY [facility] Last Admin: 08/11/18 09:07 Dose: 80 mg Doxazosin Mesylate (Cardura) 2 mg PO DAILY [facility] Last Admin: 08/11/18 09:08 Dose: 2 mg Fenofibrate (Tricor) 145 mg PO DAILY [facility] Last Admin: 08/11/18 09:07 Dose: 145 mg Furosemide (Lasix Inj) 40 mg IV.PUSH ONCE PRN PRN Reason: Inbetween PRBC units Last Admin: 08/09/18 18:00 Dose: 40 mg Furosemide (Lasix Inj) 40 mg IV.PUSH BID@0900,1800 [facility] Last Admin: 08/11/18 09:08 Dose: 40 mg Hydralazine HCl (Apresoline) 25 mg PO TID PRN PRN Reason: SBP>160, DBP>90 Hydralazine HCl (Apresoline) 25 mg PO TID PRN PRN Reason: SBP>160, DBP>90 Iron Sucrose 200 mg/ Sodium (Chloride) 110 mls @ 110 mls/hr IV.SIG DAILY [facility] Stop: 08/13/18 09:59 Levothyroxine Sodium (Synthroid) 50 mcg PO DAILY@0600 [facility] Last Admin: 08/11/18 05:22 Dose: 50 mcg Lisinopril (Prinivil) 20 mg PO DAILY [facility] Last Admin: 08/11/18 09:07 Dose: 20 mg Ondansetron HCl (Zofran Inj) 4 mg IV.PUSH Q6H PRN PRN Reason: NAUSEA OR VOMITING Pantoprazole Sodium (Protonix) 40 mg PO DAILY [facility] Last Admin: 08/11/18 09:08 Dose: 40 mg Polyethylene Glycol/Electrolytes (Colyte Liq) 4,000 ml PO ONCE ONE Stop: 08/12/18 16:01 Potassium Chloride (Klor-Con 10) 20 meq PO DAILY [facility] Sodium Chloride (Ns Flush) 2 ml IV.FLUSH UNSCH PRN PRN Reason: FLUSH AFTER USING IV ACCESS Last Admin: 08/09/18 14:13 Dose: 2 ml Sodium Chloride (Ns Flush) 2 ml IV.FLUSH BID [facility] Last Admin: 08/11/18 09:08 Dose: 2 ml Sodium Chloride (Ns Flush) 2 ml IV.FLUSH PRN PRN PRN Reason: FLUSH AFTER USING IV ACCESS <Zuleyma Laureano - Last Filed: 08/11/18 14:53> Active Medications: Active Medications Acetaminophen (Tylenol) 650 mg PO Q4H PRN PRN Reason: Temp > 100.4 Al Hydroxide/Mg Hydroxide (Milk Of Magnesia Liq) 30 ml PO Q12H PRN PRN Reason: Mild Constipation Last Admin: 08/10/18 20:18 Dose: 30 ml Albuterol (Duoneb Neb (Prn)) 1 ampul NEB Q2HR NEB PRN PRN Reason: SHORTNESS OF BREATH Last Admin: 08/12/18 08:45 Dose: 1 ampul Amlodipine Besylate (Norvasc) 5 mg PO DAILY [facility] Last Admin: 08/12/18 09:40 Dose: Not Given Atorvastatin Calcium (Lipitor) 80 mg PO DAILY [facility] Last Admin: 08/12/18 09:38 Dose: 80 mg Doxazosin Mesylate (Cardura) 2 mg PO DAILY [facility] Last Admin: 08/12/18 09:40 Dose: Not Given Fenofibrate (Tricor) 145 mg PO DAILY [facility] Last Admin: 08/12/18 09:38 Dose: 145 mg Furosemide (Lasix Inj) 40 mg IV.PUSH ONCE PRN PRN Reason: Inbetween PRBC units Last Admin: 08/09/18 18:00 Dose: 40 mg Furosemide (Lasix Inj) 40 mg IV.PUSH BID@0900,1800 [facility] Last Admin: 08/12/18 09:39 Dose: 40 mg Hydralazine HCl (Apresoline) 25 mg PO TID PRN PRN Reason: SBP>160, DBP>90 Hydralazine HCl (Apresoline) 25 mg PO TID PRN PRN Reason: SBP>160, DBP>90 Iron Sucrose 200 mg/ Sodium (Chloride) 110 mls @ 110 mls/hr IV.SIG DAILY [facility] Stop: 08/13/18 09:59 Last Infusion: 08/11/18 18:29 Dose: Infused Levothyroxine Sodium (Synthroid) 50 mcg PO DAILY@0600 [facility] Last Admin: 08/12/18 06:17 Dose: 50 mcg Lisinopril (Prinivil) 20 mg PO DAILY [facility] Last Admin: 08/12/18 09:40 Dose: Not Given Ondansetron HCl (Zofran Inj) 4 mg IV.PUSH Q6H PRN PRN Reason: NAUSEA OR VOMITING Pantoprazole Sodium (Protonix) 40 mg PO DAILY [facility] Last Admin: 08/12/18 09:38 Dose: 40 mg Polyethylene Glycol/Electrolytes (Colyte Liq) 4,000 ml PO ONCE ONE Stop: 08/12/18 16:01 Potassium Chloride (Klor-Con 10) 20 meq PO DAILY [facility] Last Admin: 08/12/18 09:38 Dose: 20 meq Sodium Chloride (Ns Flush) 2 ml IV.FLUSH UNSCH PRN PRN Reason: FLUSH AFTER USING IV ACCESS Last Admin: 08/09/18 14:13 Dose: 2 ml Sodium Chloride (Ns Flush) 2 ml IV.FLUSH BID [facility] Last Admin: 08/12/18 09:40 Dose: 2 ml Sodium Chloride (Ns Flush) 2 ml IV.FLUSH PRN PRN PRN Reason: FLUSH AFTER USING IV ACCESS <Donald Bassett - Last Filed: 08/12/18 10:53> Allergies Allergy/AdvReac Type Severity Reaction Status Date / Time No Known Allergies Allergy Verified 08/09/18 09:08 Home Medications Medication Instructions Recorded Confirmed Type amlodipine 5 mg PO DAILY 08/09/18 08/09/18 History apixaban [Eliquis] 5 mg PO BID 08/09/18 08/09/18 History benzonatate 100 mg PO TID PRN 08/09/18 08/09/18 History cetirizine 10 mg PO DAILY 08/09/18 08/09/18 History doxazosin 2 mg PO DAILY 08/09/18 08/09/18 History fenofibrate 160 mg PO DAILY 08/09/18 08/09/18 History hydrochlorothiazide 25 mg PO DAILY 08/09/18 08/09/18 History levothyroxine 50 mcg PO DAILY 08/09/18 08/09/18 History lisinopril 20 mg PO DAILY 08/09/18 08/09/18 History pantoprazole 40 mg PO DAILY 08/09/18 08/09/18 History rosuvastatin 40 mg PO DAILY 08/09/18 08/09/18 History Exam Vital signs: Vital Signs 08/10/18 15:28 08/10/18 15:30 08/10/18 20:07 Temperature 98 F 98.2 F Pulse Rate 93 H 85 101 H Respiratory Rate 16 18 18 Blood Pressure 102/61 122/58 L Pulse Oximetry 97 95 97 08/10/18 20:31 08/10/18 23:55 08/11/18 05:33 Temperature 97.9 F Pulse Rate 91 H 84 99 H Respiratory Rate 17 17 17 Blood Pressure 115/56 L Pulse Oximetry 96 08/11/18 08:00 08/11/18 10:05 08/11/18 12:00 Temperature 98.4 F 98.1 F Pulse Rate 83 80 84 Respiratory Rate 18 18 18 Blood Pressure 133/70 98/49 L Pulse Oximetry 95 95 96 Intake & Output 08/10/18 08/11/18 08/11/18 18:59 06:59 18:59 Other: # Voids 3 Date of Last Bowel Movement 08/07/18 08/08/18 - Constitutional no acute distress, chronically ill appearing, cooperative - Routine HEENT Exam Head: Present: normocephalic - Routine Respiratory Exam Present: wheezes, crackles. Absent: respiratory distress Comments: O2 via nasal cannula Marked shortness of breath on minimal exertion BNP 420 - Routine Cardiovascular Exam Present: RRR, S1, S2 - Routine Abdominal Exam Present: soft, normoactive bowel sounds. Absent: tenderness, distended, guarding, firm - Routine Extremities Exam Absent: edema - Routine Skin Exam Present: dry, warm - Routine Neurological Exam Present: alert <Zuleyma Laureano - Last Filed: 08/11/18 14:53> Vital signs: Vital Signs 08/11/18 12:00 08/11/18 16:00 08/11/18 16:27 Temperature 98.1 F 98.2 F Pulse Rate 84 89 88 Respiratory Rate 18 18 16 Blood Pressure 98/49 L 93/51 L Pulse Oximetry 96 96 08/11/18 19:34 08/11/18 20:24 08/11/18 23:00 Temperature 98.3 F 98.5 F Pulse Rate 85 73 80 Respiratory Rate 18 18 18 Blood Pressure 131/57 L 101/49 L Pulse Oximetry 95 91 L 92 L 08/12/18 01:05 08/12/18 08:00 08/12/18 08:47 Temperature 97.9 F Pulse Rate 73 85 70 Respiratory Rate 18 18 18 Blood Pressure 105/51 L Pulse Oximetry 92 L 94 L Intake & Output 08/11/18 08/12/18 08/12/18 18:59 06:59 18:59 Intake Total 110 / 110 480 / 480 Balance 110 / 110 480 / 480 Weight 77.6 kg Intake: IV 110 / 110 Venofer Inj 200 MG In NS Inj 110 / 110 100 ML @ 110 mls/hr IV.SIG DAILY [facility] Rx#:[id number] Oral 480 / 480 Other: # Voids 2 4 Date of Last Bowel Movement 08/08/18 08/08/18 # Bowel Movements 0 <Donald Bassett - Last Filed: 08/12/18 10:53> Results - Labs CBC & Chem 7: 08/10/18 06:41 08/10/18 06:41 <Zuleyma Laureano - Last Filed: 08/11/18 14:53> - Labs CBC & Chem 7: 08/12/18 08:23 08/12/18 08:23 Labs: Laboratory Results - last 24 hr 08/12/18 08/12/18 08:23 08:23 WBC 8.4 RBC 4.20 Hgb 10.8 L Hct 33.9 L MCV 80.7 MCH 25.6 L MCHC 31.7 L RDW 20.3 H Plt Count 383 MPV 7.8 Neut % (Auto) 63.5 Lymph % (Auto) 9.8 [place] % (Auto) 15.5 H Eos % (Auto) 10.3 H Baso % (Auto) 0.9 Neut # (Auto) 5.3 Lymph # (Auto) 0.8 L [place] # (Auto) 1.3 H Eos # (Auto) 0.9 H Baso # (Auto) 0.1 WBC Differential . Differential Comment Auto diff final Sodium 134 L Potassium 3.1 L Chloride 96 L Carbon Dioxide 29.6 Anion Gap 8 BUN 16 Creatinine 1.21 H Estimated GFR 43 L Random Glucose 123 H Calcium 8.5 <Donald Bassett - Last Filed: 08/12/18 10:53> Assessment and Plan (1) Anemia Status: Acute Code(s): D64.9 - Anemia, unspecified (2) GI bleed Status: Acute Code(s): K92.2 - Gastrointestinal hemorrhage, unspecified - Plan Patient is a pleasant 77-year-old female with past medical history significant for hypertension, COPD, GERD, hypercholesteremia and hypothyroidism. Surgical history significant for tubal ligation and cholecystectomy. Patient presented to [facility] emergency room with complaint of worsening shortness of breath with minimal exertion for 2-3 weeks. Patient endorsed shortness of breath but denied any fever or chills. Upon arrival to ED, patient was found to have hemoglobin of 6.6 hematocrit 21.2, BNP of 420. Hemoccult stool was negative. Of note, patient states that she has been on Eliquis for the last 2- 3 months. She denies any noted history of atrial fibrillation, PAD, DVT or CVA. Patient states last colonoscopy and EGD done 2 years ago per her recollection. EGD revealed hiatal hernia per patient. Colonoscopy did not reveal any abnormal findings per patient. 08/10/2018 hemoglobin 9.7 hematocrit 29.2 post 2 units of packed blood cell transfusion. Of note, iron studies reveal iron level 11 TIBC 596 saturation 1.8 ferritin level 4. Our service has been consulted to evaluate patient for anemia/possible GI bleeding. Anemia-likely iron deficiency GI bleed Patient presents with worsening shortness of breath over the last 2-3 weeks. Hemoglobin 6.6 hematocrit 21.2 on arrival to ER. Hemoccult stool negative. Iron panel and admission H&H as noted above. Patient denies dark or black tarry stools. Denies any noted obvious bleeding. 08/10/2018 WBC 11.5 hemoglobin 9.7 hematocrit 29.2 platelet count 340 Total bilirubin 0.6 AST 10 ALT 13 alk phos 45 troponin less than 0.02 BUN 19 creatinine 1.1 GFR 45 08/09/2018 CT abdomen and pelvis reveal the followin. Calcific atherosclerotic vascular disease with calcified plaque identified at the origin of the celiac and superior mesenteric arteries. 2. Uncomplicated colonic diverticulosis. 3. No evidence of ileus, free air or abnormal fluid collections. 4. Status post cholecystectomy. Plan -Regular diet today -Clear liquid diet tomorrow -N.p.o. after midnight 08/13/2018 -GoLYTELY prep on 08/12/2018 at 1600 -Obtain consent for EGD and colonoscopy -Monitor for bleeding -Monitor hemoglobin hematocrit -PPI -Avoid NSAIDs and anticoagulants -Iron infusion as per attending for iron deficiency and area -Supportive care -Further recommendations to follow This patient has been seen by myself and Dr. Bassett and this note is written on his behalf - Attending Attestation Dr. Bassett <Zuleyma Laureano - Last Filed: 08/11/18 14:53> (1) Anemia Status: Acute Code(s): D64.9 - Anemia, unspecified (2) GI bleed Status: Acute Code(s): K92.2 - Gastrointestinal hemorrhage, unspecified - Attending Attestation Agree with above assessment and plan. Thank you for the consult. <Donald Bassett - Last Filed: 08/12/18 10:53>
[2018-08-11] MEDS: Iron Sucrose Inj 200 MG in Sodium Chlor 0.9% Inj 100 ML IV.SIG SCH (17:28)
[2018-08-12] MEDS: Levothyroxine 50 MCG Tablet PO SCH (06:17)
[2018-08-12 08:53] LABS: Calcium 8.5 mg/dL (8.5-10.1); Carbon Dioxide 29.6 meq/L (21.0-32.0); Potassium 3.1 meq/L (3.5-5.1)
[2018-08-12 09:06] LABS: Baso # (Auto) 0.1 th/mm3 (0.0-0.2); Baso % (Auto) 0.9 % (0.0-2.0); Eos # (Auto) 0.9 th/mm3 (0.0-0.4); Eos % (Auto) 10.3 % (0.0-4.0); Hematocrit 33.9 % (35.0-46.0); Hemoglobin 10.8 gm/dL (11.6-15.3); Lymph # (Auto) 0.8 th/mm3 (1.0-4.8); Lymph % (Auto) 9.8 % (9.0-44.0); Mean Corpuscular HGB Conc 31.7 % (32.0-36.0); Mean Corpuscular Hemoglobin 25.6 pg (27.0-34.0); Mean Corpuscular Volume 80.7 fL (80.0-100.0); Mean Platelet Volume 7.8 fL (7.0-11.0); Mono # (Auto) 1.3 th/mm3 (0.0-0.9); Mono % (Auto) 15.5 % (0.0-8.0); Neut # (Auto) 5.3 th/mm3 (1.8-7.7); Neut % (Auto) 63.5 % (16.0-70.0); Platelet Count 383 th/mm3 (150-450); Red Cell Distribution Width 20.3 % (11.6-17.2); White Blood Count 8.4 th/mm3 (4.0-11.0)
[2018-08-12] MEDS: Iron Sucrose Inj 200 MG in Sodium Chlor 0.9% Inj 100 ML IV.SIG SCH (09:30)
[2018-08-12] MEDS: Fenofibrate 145 MG Tablet PO SCH (09:38)
[2018-08-12] MEDS: amLODIPine 5 MG Tablet PO SCH (09:40)
[2018-08-12] MEDS: Lisinopril 20 MG Tablet PO SCH (09:40)
--- NOTE | 2018-08-12 10:01 | P.PNGI ---
Subjective Interval history: Patient sitting up in bedside chair, daughter at bedside. Patient denies any nausea, vomiting, abdominal pain. Has not noticed any mitch blood in her stool or melena. Physical Exam Vital signs: Vital Signs 08/11/18 10:05 08/11/18 12:00 08/11/18 16:00 Temperature 98.1 F 98.2 F Pulse Rate 80 84 89 Respiratory Rate 18 18 18 Blood Pressure 98/49 L 93/51 L Pulse Oximetry 95 96 96 08/11/18 16:27 08/11/18 19:34 08/11/18 20:24 Temperature 98.3 F Pulse Rate 88 85 73 Respiratory Rate 16 18 18 Blood Pressure 131/57 L Pulse Oximetry 95 91 L 08/11/18 23:00 08/12/18 01:05 08/12/18 08:00 Temperature 98.5 F 97.9 F Pulse Rate 80 73 85 Respiratory Rate 18 18 18 Blood Pressure 101/49 L 105/51 L Pulse Oximetry 92 L 92 L 08/12/18 08:47 Temperature Pulse Rate 70 Respiratory Rate 18 Blood Pressure Pulse Oximetry 94 L Intake & Output 08/11/18 08/12/18 08/12/18 18:59 06:59 18:59 Intake Total 110 / 110 480 / 480 Balance 110 / 110 480 / 480 Weight 77.6 kg Intake: IV 110 / 110 Venofer Inj 200 MG In NS Inj 110 / 110 100 ML @ 110 mls/hr IV.SIG DAILY [facility] Rx#:[id number] Oral 480 / 480 Other: # Voids 2 4 Date of Last Bowel Movement 08/08/18 # Bowel Movements 0 - Constitutional no acute distress - Routine HEENT Exam Head: Present: normocephalic, atraumatic - Routine Respiratory Exam Absent: accessory muscle use - Routine Abdominal Exam Present: soft, normoactive bowel sounds. Absent: tenderness, distended - Routine Skin Exam Present: dry, warm - Routine Neurological Exam Present: alert, oriented X3 Results - Labs CBC & Chem 7: 08/12/18 08:23 08/12/18 08:23 Laboratory Results - last 24 hr 08/12/18 08/12/18 08:23 08:23 WBC 8.4 RBC 4.20 Hgb 10.8 L Hct 33.9 L MCV 80.7 MCH 25.6 L MCHC 31.7 L RDW 20.3 H Plt Count 383 MPV 7.8 Neut % (Auto) 63.5 Lymph % (Auto) 9.8 [place] % (Auto) 15.5 H Eos % (Auto) 10.3 H Baso % (Auto) 0.9 Neut # (Auto) 5.3 Lymph # (Auto) 0.8 L [place] # (Auto) 1.3 H Eos # (Auto) 0.9 H Baso # (Auto) 0.1 WBC Differential . Differential Comment Auto diff final Sodium 134 L Potassium 3.1 L Chloride 96 L Carbon Dioxide 29.6 Anion Gap 8 BUN 16 Creatinine 1.21 H Estimated GFR 43 L Random Glucose 123 H Calcium 8.5 Assessment and Plan (1) Anemia Status: Acute Code(s): D64.9 - Anemia, unspecified (2) GI bleed Status: Acute Code(s): K92.2 - Gastrointestinal hemorrhage, unspecified - Plan Assessment Anemia with Hemoccult negative stoolspatient denies any mitch bleeding including hematochezia, melena, hematemesis and coffee-ground emesis. Patient reports that she has known history of any anemia but that it has always been slight and has never required treatment. Denies being on iron supplementation or B12 in the past. Denies previous blood transfusion. States that her PCP put her on Eliquis approximately 2-3 months ago, she is unsure of the indication. Patient presented to the emergency department with complaints of shortness of breath and overall weakness, hemoglobin on admission 6.6. Patient reports that she had a colonoscopy possibly at the end of last year, and does not remember any abnormal findings. She also believes that she has had an EGD in the past secondary to complaints of dysphasia and is unsure of any findings in this as well. Plan EGD/colonoscopy tomorrow Clear liquids today GoLYTELY prep N.p.o. after midnight Monitor H/H IV Venofer If GI workup negative, consider hematology workup Further recommendations to follow This patient has been seen and examined by myself and Dr. NGUYEN but this note is written on his behalf
[2018-08-12] MEDS ORDERED: PEG 3350/E-Lyte Soln 4000 ML Bottle PO ONE (16:00)
--- NOTE | 2018-08-12 16:41 | P.PNIM ---
Subjective Interval history: Ambulating says still with sob. Still with cough. No fever or chills. No n/v. Has BMs as is taking Golytely No fever or chills. Physical Exam Vital signs: Last Vital Signs Temp 98.5 F 08/12/18 12:00 Pulse 72 08/12/18 12:05 Resp 18 08/12/18 12:05 BP 101/57 L 08/12/18 12:00 Pulse Ox 96 08/12/18 12:00 Intake & Output 08/10/18 08/11/18 08/12/18 08/13/18 06:59 06:59 06:59 06:59 Intake Total 1880 / 1880 590 / 590 Output Total 1604 / 1604 Balance 276 / 276 590 / 590 Weight 81.3 kg 77.6 kg Narrative: GENERAL: Elderly female, appears in NAD CARDIOVASCULAR: Regular rate and rhythm. RESPIRATORY: No accessory muscle use. Clear to auscultation. Breath sounds equal bilaterally. GASTROINTESTINAL: Abdomen soft, non-tender, nondistended. Hepatic and splenic margins not palpable. MUSCULOSKELETAL: Extremities without clubbing, cyanosis, or edema. No obvious deformities. NEUROLOGICAL: Awake and alert. No obvious cranial nerve deficits. Motor grossly within normal limits. Five out of 5 muscle strength in the arms and legs. Normal speech. Results Labs CBC & Chem 7: 08/12/18 08:23 08/12/18 08:23 Assessment and Plan (1) Anemia: Code(s): D64.9 - Anemia, unspecified Status: Acute (2) GI bleed: Code(s): K92.2 - Gastrointestinal hemorrhage, unspecified Status: Acute Plan 67-year-old female with Symptomatic anemia Severe iron deficiency Hemoccult negative S/p Transfusion 2 units of packed red blood cell, give Lasix IV x1 in between Check iron studies, ferritin, B12 level . B12 is normal. Patien thowever with severe iron deficienecy , start venofer IV , will start iron supplement also to have at [facility], the patient says she is not sure why she is taking it. Consult GI, plan for colonoscopy 09/12/18 H&H monitoring. So far H/H is stable . Continue venofer IV EGD/Colonoscopy 08/13/18 CHF with preserved EF exacerbation Moderate Mitral stenosis. Mild Aortic calcification BNP elevated on admission Chest x-ray reviewed mild cardiomegaly with Central vascular prominence Lasix 20 mg IV every 12 hours Strict I's and O's 2D echo nl EF and resume RODRI inhibitor Dyspnea Multifactorial In The absence of chest pain, will hold on CTA pulmonary to r/o PE Treatment as an above 2D echo reviewed normal EF 55% DuoNeb as needed Add gabyallbarbara palomares Add IS Hypertension Resume outpatient medications Abdominal pain Abdominal CT noted and reviewed by me without any evidence of ileus, free air or abnormal fluid collections Conservative management Chest x-ray with finding of Right infrahilar opacity which may represent subsegmental consolidation. However patient currently afebrile and no leukocytosis, therefore will hold on continue antibiotics Continue to monitor clinical response EGD/Colonoscopy 08/13/18 Hyperlipidemia Resume Lipitor Hypothyroidism Check TSH and free T4 Resume Synthroid Hoarseness: Consult ENT , seen by ENT to follow up as OP with ent upon discharge. DVT ppx scd.tds, hold chemical ppx due to anemia. Patient is currently on Eliquis however denies any history of PE, DVT or A. fib. Discontinue Eliquis Discussed with the patient, family at bedside very supportive, nurse. Progress Note: Quality VTE Deep Vein Thrombosis/Pulmonary Embolism Present on Admission: No _ (1) GI bleed Qualifiers: GI bleed type/associated pathology: Gastritis type: (2) Anemia Qualifiers: Anemia type: Bone marrow failure anemia type: Chronic kidney disease stage : Folate deficiency anemia type: Hemolytic anemia type: Iron deficiency anemia type: Other causes of anemia: Vitamin B12 deficiency anemia type:
[2018-08-12] MEDS ORDERED: Acetaminophen/Codeine 120/12 MG Elixir 5 ML UDC PO PRN (18:51)
[2018-08-13] MEDS: Levothyroxine 50 MCG Tablet PO SCH (05:28)
[2018-08-13] MEDS ORDERED: Chlorhexidine Gluconate 2% 1 Pack (2 Cloths) TOPICAL ONE (06:55)
[2018-08-13 07:00] LABS: Baso # (Auto) 0.1 th/mm3 (0.0-0.2); Baso % (Auto) 0.6 % (0.0-2.0); Eos # (Auto) 0.7 th/mm3 (0.0-0.4); Hemoglobin 10.8 gm/dL (11.6-15.3); Lymph # (Auto) 0.9 th/mm3 (1.0-4.8); Lymph % (Auto) 8.4 % (9.0-44.0); Mean Corpuscular HGB Conc 31.9 % (32.0-36.0); Mean Corpuscular Hemoglobin 25.3 pg (27.0-34.0); Mean Corpuscular Volume 79.5 fL (80.0-100.0); Mean Platelet Volume 7.7 fL (7.0-11.0); Mono # (Auto) 1.7 th/mm3 (0.0-0.9); Mono % (Auto) 16.2 % (0.0-8.0); Neut # (Auto) 7.1 th/mm3 (1.8-7.7); Neut % (Auto) 67.8 % (16.0-70.0); Platelet Count 378 th/mm3 (150-450); Red Blood Count 4.28 mil/mm3 (4.00-5.30); Red Cell Distribution Width 21.4 % (11.6-17.2); White Blood Count 10.5 th/mm3 (4.0-11.0)
[2018-08-13] MEDS ORDERED: Sodium Chlor 0.9% Inj 500 ML IV.SIG SCH (07:00)
[2018-08-13 07:17] LABS: Calcium 8.5 mg/dL (8.5-10.1); Carbon Dioxide 32.6 meq/L (21.0-32.0); Potassium 3.4 meq/L (3.5-5.1)
--- NOTE | 2018-08-13 08:54 | P.PNIM ---
Subjective Interval history: Went for EGD and colonoscopy today. Patient was noted desaturating while in the procedures. Order stat chest x-ray, will start steroids and IV antibiotics Levaquin. We will add Mucinex as patient still with cough. No fever or chills. Abdominal pain improving. Physical Exam Vital signs: Last Vital Signs Temp 98.9 F 08/13/18 03:50 Pulse 81 08/13/18 03:50 Resp 17 08/13/18 03:50 BP 141/65 H 08/13/18 03:50 Pulse Ox 95 08/13/18 03:50 Intake & Output 08/11/18 08/12/18 08/13/18 08/14/18 06:59 06:59 06:59 06:59 Intake Total 590 / 590 910 / 910 Balance 590 / 590 910 / 910 Weight 77.6 kg 77.7 kg Narrative: GENERAL: Elderly female, appears in NAD CARDIOVASCULAR: Regular rate and rhythm. RESPIRATORY: No accessory muscle use. Clear to auscultation. Breath sounds equal bilaterally. GASTROINTESTINAL: Abdomen soft, non-tender, nondistended. Hepatic and splenic margins not palpable. MUSCULOSKELETAL: Extremities without clubbing, cyanosis, or edema. No obvious deformities. NEUROLOGICAL: Awake and alert. No obvious cranial nerve deficits. Motor grossly within normal limits. Five out of 5 muscle strength in the arms and legs. Normal speech. Results Labs CBC & Chem 7: 08/13/18 06:16 08/13/18 06:16 Assessment and Plan (1) Anemia: Code(s): D64.9 - Anemia, unspecified Status: Acute (2) GI bleed: Code(s): K92.2 - Gastrointestinal hemorrhage, unspecified Status: Acute Plan 67-year-old female with Symptomatic anemia Severe iron deficiency Hemoccult negative S/p Transfusion 2 units of packed red blood cell, give Lasix IV x1 in between Check iron studies, ferritin, B12 level . B12 is normal. Patien thowever with severe iron deficienecy , start venofer IV , will start iron supplement also to have at [facility], the patient says she is not sure why she is taking it. Consult GI, plan for colonoscopy 09/12/18 H&H monitoring. So far H/H is stable . Continue venofer IV EGD/Colonoscopy 08/13/18 CHF with preserved EF exacerbation Moderate Mitral stenosis. Mild Aortic calcification BNP elevated on admission Chest x-ray reviewed mild cardiomegaly with Central vascular prominence Lasix 20 mg IV every 12 hours Strict I's and O's 2D echo nl EF and resume RODRI inhibitor Hold blood pressure medications if low blood pressure Dyspnea Acute respiratory distress. Noted 08/13/18 desaturating while in the procedures. Patient requiring oxygen and never been on oxygen before. Still shortness of breath. Will need walking test at discharge Multifactorial In The absence of chest pain, will hold on CTA pulmonary to r/o PE Treatment as an above 2D echo reviewed normal EF 55% DuoNeb as needed Add tessallon pearles Add IS repeat chest x-ray 08/13/18 Start IV antibiotic Levaquin Start Solu-Medrol Add Mucinex We will consult pulmonology Hypertension Resume outpatient medications Abdominal pain Abdominal CT noted and reviewed by me without any evidence of ileus, free air or abnormal fluid collections Conservative management Chest x-ray with finding of Right infrahilar opacity which may represent subsegmental consolidation. However patient currently afebrile and no leukocytosis, therefore will hold on continue antibiotics Continue to monitor clinical response EGD/Colonoscopy 08/13/18 Hyperlipidemia Resume Lipitor Hypothyroidism Check TSH and free T4 Resume Synthroid Hoarseness: Consult ENT , seen by ENT to follow up as OP with ent upon discharge. DVT ppx scd.tds, hold chemical ppx due to anemia. Patient is currently on Eliquis however denies any history of PE, DVT or A. fib. Discontinue Eliquis Discussed with the patient, family at bedside very supportive, nurse. Progress Note: Quality VTE Deep Vein Thrombosis/Pulmonary Embolism Present on Admission: No _ (1) GI bleed Qualifiers: GI bleed type/associated pathology: Gastritis type: (2) Anemia Qualifiers: Anemia type: Bone marrow failure anemia type: Chronic kidney disease stage : Folate deficiency anemia type: Hemolytic anemia type: Iron deficiency anemia type: Other causes of anemia: Vitamin B12 deficiency anemia type:
--- NOTE | 2018-08-13 09:01 | MB ---
cc: Cornelius Pearce MD DATE: 08/12/2018 CHIEF COMPLAINT: Hoarseness. HISTORY OF PRESENT ILLNESS: This is a 77-year-old female who has been admitted for shortness of breath and severe congestive heart failure as well as anemia. She is currently being worked up for a possible GI bleed. She has been receiving transfusions. The patient reported after she was admitted that she has had hoarseness for more than 6 months and she was concerned that there could be something more ominous going on. She has not been seen by ENT or evaluated by ENT in the past for this. The patient denies any dysphagia or odynophagia. PAST MEDICAL HISTORY: Significant for COPD, GERD, hypertension, hypercholesterolemia, hypothyroidism, congestive heart failure. PAST SURGICAL HISTORY: Significant for cholecystectomy. SOCIAL HISTORY: She has no history of tobacco use. Occasional ethanol use. FAMILY HISTORY: No history of substance abuse. MEDICATIONS: Please see the MAR. PHYSICAL EXAMINATION: GENERAL: The patient was alert and oriented x3, in no acute distress, afebrile. VITAL SIGNS: Stable. She was resting comfortably in bed. HEENT: Exam reveals clear oral cavity and oropharynx. A flexible laryngoscopy at bedside showed interarytenoid pachydermia consistent with her reflux disease. Her vocal cords were mildly edematous. There were no lesions or ulcerations noted. Both vocal cords were moving normally and for the limited exam at bedside, no obvious lesions were noted. NECK: Exam reveals no palpable lymphadenopathy. ASSESSMENT AND PLAN: Patient with some evidence of reflux laryngitis, which may likely be the cause of her longstanding hoarseness. Would recommend continued workup for her possible gastrointestinal bleed. She would likely benefit from acid reflux medications. At this time, would recommend that she followup with ENT after discharge for further exam and for a more detailed laryngoscopy in the office. I have expressed these issues with the patient. She reports understanding and would like to follow up in the office. Thank you for this consultation. Cornelius Pearce MD ATT/kimberlee , 08:33 AM , 08:38 AM
--- NOTE | 2018-08-13 12:13 | GIPROC ---
[facility] [address] [facility]. [facility], [address] COLONOSCOPY PROCEDURE REPORT EXAM DATE: 08/13/2018 PATIENT NAME: Anita Rhoades MR #: [id number] BIRTHDATE: 1940 ENDOSCOPIST: Lloyd Clinton MD ORDER #: [id number] CHIEF RELAY TESTER: Wale Russo and Sophia Milner STATUS: inpatient INDICATIONS: The patient is a 77 yr old female here for a colonoscopy due to iron deficiency anemia PROCEDURE PERFORMED: Colonoscopy with ablation MEDICATIONS: Per Anesthesia and None. PREP QUALITY: poor ESTIMATED BLOOD LOSS: None CONSENT: The patient understands the risks and benefits of the procedure and understands that these risks include, but are not limited to: sedation, allergic reaction, infection, perforation and/or bleeding. Alternative means of evaluation and treatment include, among others: physical exam, x-rays, and/or surgical intervention. The patient elects to proceed with this endoscopic procedure. medical equipment was checked for proper function. Hand hygiene and appropriate measures for infection prevention was taken. After the risks, benefits and alternatives of the procedure were thoroughly explained, Informed consent was verified, confirmed and timeout was successfully executed by the treatment team. A digital exam was performed and revealed no abnormalities of the rectum The Pentax EC-[id number] endoscope was introduced through the anus and advanced to the cecum, which was identified by both the appendix and ileocecal valve. The instrument was then slowly withdrawn as the colon was fully examined. COLON FINDINGS: Moderate diverticulosis was noted throughout the entire examined colon. 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 Argon plasma coagulation was applied to the site. Retroflexed views revealed internal hemorrhoids and Retroflexed views revealed large internal hemorrhoids The scope was then completely withdrawn from the patient and the procedure terminated. PROCEDURE WITHDRAWAL TIME:8minutes ADVERSE EVENTS: There were no complications. IMPRESSIONS: 1. Moderate diverticulosis was noted throughout the entire examined colon 2. 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 Retroflexed views revealed internal hemorrhoids 4. Retroflexed views revealed large internal hemorrhoids 5. Was performed 6. Revealed no abnormalities of the rectum RECOMMENDATIONS: Monitor labs RECALL: Return 1 year Colonoscopy Colon prep poor Lloyd Clinton MD eSigned: Lloyd Clinton MD 08/13/2018 12:13 PM cc: PATIENT NAME: Anita Rhoades MR#: [id number]
--- NOTE | 2018-08-13 12:17 | GIPROC ---
[facility] [address] [facility]. [facility], [address] EGD PROCEDURE REPORT EXAM DATE: 08/13/2018 PATIENT NAME: Anita Rhoades MR #: [id number] BIRTHDATE: 1940 ATTENDING: Lloyd Clinton MD ORDER #: [id number] SURVEYING CREW STAKE RUNNER: Wale Russo and Sophia Milner STATUS: inpatient INDICATIONS: The patient is a 77 yr old female here for an EGD due to unexplained iron deficiency anemia PROCEDURE PERFORMED: EGD, diagnostic MEDICATIONS: Per Anesthesia and None. TOPICAL ANESTHETIC: none CONSENT: The patient understands the risks and benefits of the procedure and understands that these risks include, but are not limited to: sedation, allergic reaction, infection, perforation and/or bleeding. Alternative means of evaluation and treatment include, among others: physical exam, x-rays, and/or surgical intervention. The patient elects to proceed with this endoscopic procedure. medical equipment was checked for proper function. Hand hygiene and appropriate measures for infection prevention was taken. After the risks, benefits and alternatives of the procedure were thoroughly explained, Informed consent was verified, confirmed and timeout was successfully executed by the treatment team. The patient was anesthetized with topical anesthesia and the EC-[id number] (Pedi C) endoscope was introduced through the mouth and advanced to the second portion of the duodenum. Retroflexed views revealed a hiatal hernia The gastroscope was then slowly withdrawn and removed. STOMACH: The mucosa of the stomach appeared normal. ESOPHAGUS: There was a benign appearing stricture in the distal esophagus. The stricture was easily traversable. DUODENUM: The duodenal mucosa appeared normal in the entire duodenum. ADVERSE EVENTS: There were no complications. IMPRESSIONS: 1. The mucosa of the stomach appeared normal 2. 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 Normal duodenal mucosa in the entire duodenum 4. Retroflexed views revealed a hiatal hernia RECOMMENDATIONS: Continue PPI PATIENT CONDITION: stable DISPOSITION: Inpatient REPEAT EXAM: Return as needed for EGD Lloyd Clinton MD eSigned: Lloyd Clinton MD 08/13/2018 12:16 PM cc: PATIENT NAME: Anita Rhoades MR#: [id number]
[2018-08-13] MEDS ORDERED: guaiFENesin 600 MG ER Tablet PO ONE (14:15)
--- NOTE | 2018-08-13 14:23 | XR ---
EXAM DATE: 08/13/2018 2:13 PM EST AGE/SEX: 77 years / Female INDICATIONS: Shortness of breath. CLINICAL DATA: This is the patient's initial encounter. Patient reports that signs and symptoms have been present for 1 day and indicates a pain score of 0/10. MEDICAL/SURGICAL HISTORY: Chronic obstructive pulmonary disease. None. COMPARISON: [facility], CHEST 2V PA&LAT, 08/09/2018. . FINDINGS: Moderate compensated cardiomegaly with large hiatal hernia. There is no evidence consolidation, pleur al effusion or pneumothorax. The portion of the bony skeleton visualized is unremarkable. CONCLUSION: Moderate compensated cardiomegaly. Large hiatal hernia Electronically signed by: Mike Simon MD Board Certified Radiologist 08/13/2018 2:22 PM EST
[2018-08-13 14:25] LABS: ABG Base Excess 7.3 mmol/L (-2-2); ABG PCO2 46 mmHg (38-42); ABG PO2 81 mmHg (61-120)
[2018-08-13] MEDS ORDERED: MethylPREDNISolone Sod Succinate Inj 40 MG/ML Vial IV.PUSH ONE (14:30)
[2018-08-13] MEDS: Lisinopril 20 MG Tablet PO SCH (14:59)
[2018-08-13] MEDS: amLODIPine 5 MG Tablet PO SCH (14:59)
[2018-08-13] MEDS: Iron Sucrose Inj 200 MG in Sodium Chlor 0.9% Inj 100 ML IV.SIG SCH (15:04)
[2018-08-13] MEDS: Fenofibrate 145 MG Tablet PO SCH (16:57)
--- NOTE | 2018-08-13 20:08 | MB ---
cc: Abran Walker MD DATE: 08/13/2018 REQUESTING PHYSICIAN: Janet Reyes MD REASON FOR CONSULTATION: Shortness of breath and COPD. HISTORY OF PRESENT ILLNESS: Ms. Rhoades is a 77-year-old white female with history of COPD. She has chronic cough for many years and multiple allergies which keeps the cough going on. She does admit to hoarseness of voice and some heartburn. She has a history of COPD, uses nebulizer treatment and inhaler at home. She was started on Eliquis as outpatient. She is not sure what was the reason. Because of worsening of her shortness of breath, she came to the hospital. She was found to have significant anemia. The patient had blood transfusion done. She was seen by GI. She had a colonoscopy and upper endoscopy done. She feels her breathing is a little better now. LABORATORY DATA: She had a workup done. Her blood gas shows pH 7.45, pCO2 of 46, pO2 of 81, bicarbonate 32, saturation 94% on 3 L nasal cannula. Her Initial CBC: WBC count 9.6, hemoglobin 6.6, hematocrit 21.2, MCV 75, platelet count 394. Repeat one after blood transfusion, hemoglobin 10.8, hematocrit 34.0. Sodium 135, potassium 3.4, chloride 95, CO2 of 32, BUN 14, creatinine 1.0. PAST MEDICAL HISTORY: Significant for history of COPD, history of GERD, hypertension, hypothyroidism, history of cholecystectomy. MEDICATIONS: She is currently taking Tylenol with codeine cough syrup, nebulizer of albuterol and Atrovent, Lipitor 80 mg a day, Tessalon 100 mg every 8 hours, Cardura 2 mg a day, Tricor 145 mg daily, Lasix 40 mg IV push one time, Mucinex 600 mg twice a day, Levaquin 750 mg a day, levothyroxine 50 mcg a day, Solu-Medrol 40 mg every 8 hours, and Zofran p.r.n. ALLERGIES: NO KNOWN DRUG ALLERGIES. SOCIAL HISTORY: She is a . She lives alone. 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 She has a history of smoking for a few years only. No alcohol abuse. FAMILY HISTORY: She has four children. REVIEW OF SYSTEMS: She walks slowly but is able to walk a good distance after multiple stops. No seizure, stroke, DVT. No coronary artery disease. No atrial fibrillation. No DVT or pulmonary embolism. PHYSICAL EXAMINATION: GENERAL: Pleasant, elderly female. Mildly short of breath. Not in acute distress. Her daughter who is a nurse is present at the bedside. VITAL SIGNS: Blood pressure 130/60, heart rate 77, respirations 18, temperature 98.6. HEENT: Pupils are equal, round, and reactive to light. Oral mucosa and nasal mucosa normal. NECK: Supple. JVP not raised. CHEST: End-expiratory rhonchi. HEART: S1, S2 normal. ABDOMEN: Soft, nondistended. Bowel sounds are present. EXTREMITIES: No edema. IMPRESSION: 1. Chronic obstructive pulmonary disease with mild exacerbation. 2. Anemia. 3. Hypertension. 4. Hypothyroidism. PLAN: I discussed with the patient and her daughter. We will give her IV Solu-Medrol, aerosol treatment, albuterol and Atrovent, supplemental oxygen. I will check a pulmonary function study, also check her room air oxygen saturation after ambulation to see if she needs home oxygen therapy. Further treatment plan will depend on her course in the hospital. Thank you, Dr. Reyes, for this consult. MD NISHANT Gonzalez/shahnaz , 06:47 PM , 06:56 PM MTDKristie
[2018-08-13] MEDS: guaiFENesin 600 MG ER Tablet PO SCH (21:18)
[2018-08-13] MEDS: MethylPREDNISolone Sod Succinate Inj 40 MG/ML Vial IV.PUSH SCH (21:19)
[2018-08-14] MEDS: Benzonatate 100 MG Capsule PO PRN ×2 (05:47→18:33)
[2018-08-14] MEDS: Levothyroxine 50 MCG Tablet PO SCH (05:47)
[2018-08-14] MEDS: MethylPREDNISolone Sod Succinate Inj 40 MG/ML Vial IV.PUSH SCH ×3 (05:47→21:45)
[2018-08-14 06:50] LABS: Calcium 8.8 mg/dL (8.5-10.1); Potassium 3.3 meq/L (3.5-5.1)
[2018-08-14 06:51] LABS: Baso % (Auto) 0.1 % (0.0-2.0); Hematocrit 32.9 % (35.0-46.0); Hemoglobin 10.9 gm/dL (11.6-15.3); Lymph # (Auto) 0.5 th/mm3 (1.0-4.8); Lymph % (Auto) 9.2 % (9.0-44.0); Mean Corpuscular HGB Conc 33.1 % (32.0-36.0); Mean Corpuscular Hemoglobin 25.9 pg (27.0-34.0); Mean Corpuscular Volume 78.4 fL (80.0-100.0); Mean Platelet Volume 7.7 fL (7.0-11.0); Mono # (Auto) 0.3 th/mm3 (0.0-0.9); Mono % (Auto) 4.9 % (0.0-8.0); Neut % (Auto) 85.8 % (16.0-70.0); Platelet Count 371 th/mm3 (150-450); White Blood Count 5.8 th/mm3 (4.0-11.0)
[2018-08-14] MEDS: Fenofibrate 145 MG Tablet PO SCH (09:23)
[2018-08-14] MEDS: guaiFENesin 600 MG ER Tablet PO SCH ×2 (09:23→21:46)
--- NOTE | 2018-08-14 12:53 | P.PNIM ---
Subjective Interval history: No much wheezing. No fever or chills. No n/v/d/c. Denies chest pain. S/P PFTs, patient with severe COPD. Patient is with some sob and is wheezing No abd pain at this time. Physical Exam Vital signs: Last Vital Signs Temp 98.1 F 08/14/18 08:00 Pulse 106 H 08/14/18 09:25 Resp 16 08/14/18 09:25 BP 157/67 H 08/14/18 08:00 Pulse Ox 90 L 08/14/18 09:47 Intake & Output 08/12/18 08/13/18 08/14/18 08/15/18 06:59 06:59 06:59 06:59 Intake Total 590 / 590 910 / 910 775 / 775 Balance 590 / 590 910 / 910 775 / 775 Weight 77.6 kg 77.7 kg 78.4 kg Narrative: GENERAL: Elderly female, appears in NAD CARDIOVASCULAR: Regular rate and rhythm. RESPIRATORY: No accessory muscle use. Clear to auscultation. Breath sounds equal bilaterally. GASTROINTESTINAL: Abdomen soft, non-tender, nondistended. Hepatic and splenic margins not palpable. MUSCULOSKELETAL: Extremities without clubbing, cyanosis, or edema. No obvious deformities. NEUROLOGICAL: Awake and alert. No obvious cranial nerve deficits. Motor grossly within normal limits. Five out of 5 muscle strength in the arms and legs. Normal speech. Results Labs CBC & Chem 7: 08/14/18 05:26 08/14/18 05:56 Imaging Imaging: Impressions Chest X-Ray 08/13/18 00:00 CONCLUSION: Moderate compensated cardiomegaly. Large hiatal hernia Assessment and Plan (1) Anemia: Code(s): D64.9 - Anemia, unspecified Status: Acute (2) GI bleed: Code(s): K92.2 - Gastrointestinal hemorrhage, unspecified Status: Acute Plan 67-year-old female with Symptomatic anemia Severe iron deficiency Hemoccult negative S/p Transfusion 2 units of packed red blood cell, give Lasix IV x1 in between Check iron studies, ferritin, B12 level . B12 is normal. Patien thowever with severe iron deficienecy , start venofer IV , will start iron supplement also to have at [facility], the patient says she is not sure why she is taking it. Consult GI, plan for colonoscopy 09/12/18 H&H monitoring. So far H/H is stable . 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 Also moderate diverticulosis entire colon CHF with preserved EF exacerbation Moderate Mitral stenosis. Mild Aortic calcification BNP elevated on admission Chest x-ray reviewed mild cardiomegaly with Central vascular prominence Lasix 20 mg IV every 12 hours Strict I's and O's 2D echo nl EF and resume RODRI inhibitor Hold blood pressure medications if low blood pressure Dyspnea Acute respiratory distress. Noted 08/13/18 desaturating while in the procedures. Patient requiring oxygen and never been on oxygen before. Still shortness of breath. Will need walking test at discharge Multifactorial In The absence of chest pain, will hold on CTA pulmonary to r/o PE Treatment as an above 2D echo reviewed normal EF 55% DuoNeb as needed Add tessallon pearles Add IS repeat chest x-ray 08/13/18 Start IV antibiotic Levaquin Start Solu-Medrol Add Mucinex Consult pulmonology, appreciate recs. Plan for PFTs Hypertension Resume outpatient medications Abdominal pain Abdominal CT noted and reviewed by me without any evidence of ileus, free air or abnormal fluid collections Conservative management Chest x-ray with finding of Right infrahilar opacity which may represent subsegmental consolidation. However patient currently afebrile and no leukocytosis, therefore will hold on continue antibiotics Continue to monitor clinical response EGD/Colonoscopy 08/13/18 Hyperlipidemia Resume Lipitor Hypothyroidism Check TSH and free T4 Resume Synthroid Hoarseness: Consult ENT , seen by ENT to follow up as OP with ent upon discharge. DVT ppx scd.tds, hold chemical ppx due to anemia. Patient is currently on Eliquis however denies any history of PE, DVT or A. fib. Discontinue Eliquis Discussed with the patient, family at bedside very supportive, nurse. Progress Note: Quality VTE Deep Vein Thrombosis/Pulmonary Embolism Present on Admission: No _ (1) GI bleed Qualifiers: GI bleed type/associated pathology: Gastritis type: (2) Anemia Qualifiers: Anemia type: Bone marrow failure anemia type: Chronic kidney disease stage : Folate deficiency anemia type: Hemolytic anemia type: Iron deficiency anemia type: Other causes of anemia: Vitamin B12 deficiency anemia type:
--- NOTE | 2018-08-14 14:18 | P.PNGI ---
Subjective Interval history: Pt in bedside chair. Tolerating liquid diet, will advance. Denies nausea, vomiting, abdominal pain. No obvious blood in stool. <Shawnee Finn - Last Filed: 08/14/18 14:14> Physical Exam Vital signs: Vital Signs 08/13/18 15:02 08/13/18 15:46 08/13/18 17:59 Temperature 98.7 F 98.6 F Pulse Rate 89 104 H 77 Respiratory Rate 18 18 18 Blood Pressure 130/58 L 130/60 Pulse Oximetry 94 L 97 Pulse Oximetry [Exertion on Room Air] Pulse Oximetry [Resting on Room Air] Pulse Oximetry [Resting with Oxygen] 08/13/18 20:29 08/13/18 20:31 08/13/18 23:45 Temperature 98.1 F Pulse Rate 80 78 Respiratory Rate 20 18 Blood Pressure 120/75 Pulse Oximetry 94 L 95 Pulse Oximetry [Exertion on Room Air] Pulse Oximetry [Resting on Room Air] Pulse Oximetry [Resting with Oxygen] 08/13/18 23:48 08/13/18 23:49 08/14/18 04:35 Temperature 97.5 F L Pulse Rate 100 H 80 Respiratory Rate 22 18 Blood Pressure 151/67 H Pulse Oximetry 94 L 95 Pulse Oximetry [Exertion on Room Air] Pulse Oximetry [Resting on Room Air] Pulse Oximetry [Resting with Oxygen] 08/14/18 05:26 08/14/18 05:30 08/14/18 08:00 Temperature 98.1 F Pulse Rate 85 83 Respiratory Rate 23 18 Blood Pressure 157/67 H Pulse Oximetry 95 94 L Pulse Oximetry [Exertion on Room Air] Pulse Oximetry [Resting on Room Air] Pulse Oximetry [Resting with Oxygen] 08/14/18 09:25 08/14/18 09:47 08/14/18 12:00 Temperature 97.7 F Pulse Rate 106 H 85 Respiratory Rate 16 18 Blood Pressure 149/63 H Pulse Oximetry 94 L Pulse Oximetry [Exertion on Room Air] 91 L Pulse Oximetry [Resting on Room Air] 90 L Pulse Oximetry [Resting with Oxygen] 94 L Intake & Output 08/13/18 08/14/18 08/14/18 18:59 06:59 18:59 Intake Total 650 / 650 125 / 125 Balance 650 / 650 125 / 125 Weight 78.4 kg Intake: IV 150 / 150 Levaquin 750 mg Premix Inj 150 150 / 150 ML @ 100 mls/hr IV.SIG Q24H [facility] Rx#:[id number] Oral 125 / 125 Anesthesia Amount 500 / 500 Other: # Voids 1 4 Date of Last Bowel Movement 08/13/17 08/13/18 # Bowel Movements 1 - Constitutional no acute distress - Routine HEENT Exam Head: Present: normocephalic, atraumatic - Routine Respiratory Exam Absent: accessory muscle use - Routine Cardiovascular Exam Present: RRR - Routine Abdominal Exam Present: soft, normoactive bowel sounds. Absent: tenderness, distended - Routine Skin Exam Present: dry, warm - Routine Neurological Exam Present: alert, oriented X3 <Shawnee Finn - Last Filed: 08/14/18 14:14> Vital signs: Vital Signs 08/13/18 15:46 08/13/18 17:59 08/13/18 20:29 Temperature 98.6 F Pulse Rate 104 H 77 80 Respiratory Rate 18 18 20 Blood Pressure 130/60 Pulse Oximetry 97 Pulse Oximetry [Exertion on Room Air] Pulse Oximetry [Resting on Room Air] Pulse Oximetry [Resting with Oxygen] 08/13/18 20:31 08/13/18 23:45 08/13/18 23:48 Temperature 98.1 F Pulse Rate 78 100 H Respiratory Rate 18 22 Blood Pressure 120/75 Pulse Oximetry 94 L 95 Pulse Oximetry [Exertion on Room Air] Pulse Oximetry [Resting on Room Air] Pulse Oximetry [Resting with Oxygen] 08/13/18 23:49 08/14/18 04:35 08/14/18 05:26 Temperature 97.5 F L Pulse Rate 80 85 Respiratory Rate 18 23 Blood Pressure 151/67 H Pulse Oximetry 94 L 95 Pulse Oximetry [Exertion on Room Air] Pulse Oximetry [Resting on Room Air] Pulse Oximetry [Resting with Oxygen] 08/14/18 05:30 08/14/18 08:00 08/14/18 09:25 Temperature 98.1 F Pulse Rate 83 106 H Respiratory Rate 18 16 Blood Pressure 157/67 H Pulse Oximetry 95 94 L Pulse Oximetry [Exertion on Room Air] Pulse Oximetry [Resting on Room Air] Pulse Oximetry [Resting with Oxygen] 08/14/18 09:47 08/14/18 12:00 08/14/18 15:08 Temperature 97.7 F Pulse Rate 85 97 H Respiratory Rate 18 14 Blood Pressure 149/63 H Pulse Oximetry 94 L Pulse Oximetry [Exertion on Room Air] 91 L Pulse Oximetry [Resting on Room Air] 90 L Pulse Oximetry [Resting with Oxygen] 94 L Intake & Output 08/13/18 08/14/18 08/14/18 18:59 06:59 18:59 Intake Total 650 / 650 125 / 125 Balance 650 / 650 125 / 125 Weight 78.4 kg Intake: IV 150 / 150 Levaquin 750 mg Premix Inj 150 150 / 150 ML @ 100 mls/hr IV.SIG Q24H [facility] Rx#:[id number] Oral 125 / 125 Anesthesia Amount 500 / 500 Other: # Voids 1 4 Date of Last Bowel Movement 08/13/17 08/13/18 08/13/18 # Bowel Movements 1 <Donald Bassett A - Last Filed: 08/14/18 15:43> Results - Labs CBC & Chem 7: 08/14/18 05:26 08/14/18 05:56 Laboratory Results - last 24 hr 08/13/18 08/13/18 08/14/18 06:16 14:10 05:26 WBC 5.8 RBC 4.20 Hgb 10.9 L Hct 32.9 L MCV 78.4 L MCH 25.9 L MCHC 33.1 RDW 21.0 H Plt Count 371 MPV 7.7 Neut % (Auto) 85.8 H Lymph % (Auto) 9.2 Aiken % (Auto) 4.9 Eos % (Auto) 0.0 Baso % (Auto) 0.1 Neut # (Auto) 5.0 Lymph # (Auto) 0.5 L Aiken # (Auto) 0.3 Eos # (Auto) 0.0 Baso # (Auto) 0.0 WBC Differential . Differential Comment Auto diff final Puncture Site Right radial Patient Temperature 98.6 O2 Saturation 94 ABG pH 7.45 H ABG pCO2 46 H ABG pO2 81 ABG HCO3 32 H ABG O2 Content 13.5 ABG Base Excess 7.3 H ABG Methemoglobin 1.2 Gary Test Present Hemoglobin 10.1 L Carboxyhemoglobin 1.3 O2 Delivery Device Nasal cannula Liter Flow 3.00 Critical Value No Sodium Potassium Chloride Carbon Dioxide Anion Gap BUN Creatinine Estimated GFR Random Glucose Calcium B-Natriuretic Peptide 114 H 08/14/18 05:56 WBC RBC Hgb Hct MCV MCH MCHC RDW Plt Count MPV Neut % (Auto) Lymph % (Auto) Aiken % (Auto) Eos % (Auto) Baso % (Auto) Neut # (Auto) Lymph # (Auto) Aiken # (Auto) Eos # (Auto) Baso # (Auto) WBC Differential Differential Comment Puncture Site Patient Temperature O2 Saturation ABG pH ABG pCO2 ABG pO2 ABG HCO3 ABG O2 Content ABG Base Excess ABG Methemoglobin Gary Test Hemoglobin Carboxyhemoglobin O2 Delivery Device Liter Flow Critical Value Sodium 131 L Potassium 3.3 L Chloride 93 L Carbon Dioxide 31.0 Anion Gap 7 BUN 13 Creatinine 0.94 Estimated GFR 57 L Random Glucose 156 H Calcium 8.8 B-Natriuretic Peptide - Imaging Impressions Chest X-Ray 08/13/18 00:00 CONCLUSION: Moderate compensated cardiomegaly. Large hiatal hernia <Shawnee Finn - Last Filed: 08/14/18 14:14> - Labs CBC & Chem 7: 08/14/18 05:26 08/14/18 05:56 Laboratory Results - last 24 hr 08/14/18 08/14/18 05:26 05:56 WBC 5.8 RBC 4.20 Hgb 10.9 L Hct 32.9 L MCV 78.4 L MCH 25.9 L MCHC 33.1 RDW 21.0 H Plt Count 371 MPV 7.7 Neut % (Auto) 85.8 H Lymph % (Auto) 9.2 Aiken % (Auto) 4.9 Eos % (Auto) 0.0 Baso % (Auto) 0.1 Neut # (Auto) 5.0 Lymph # (Auto) 0.5 L Aiken # (Auto) 0.3 Eos # (Auto) 0.0 Baso # (Auto) 0.0 WBC Differential . Differential Comment Auto diff final Sodium 131 L Potassium 3.3 L Chloride 93 L Carbon Dioxide 31.0 Anion Gap 7 BUN 13 Creatinine 0.94 Estimated GFR 57 L Random Glucose 156 H Calcium 8.8 <Donald Bassett - Last Filed: 08/14/18 15:43> Assessment and Plan (1) Anemia Status: Acute Code(s): D64.9 - Anemia, unspecified (2) GI bleed Status: Acute Code(s): K92.2 - Gastrointestinal hemorrhage, unspecified - Plan Assessment Anemia with Hemoccult negative stoolspatient denies any mitch bleeding including hematochezia, melena, hematemesis and coffee-ground emesis. Patient reports that she has known history of any anemia but that it has always been slight and has never required treatment. Denies being on iron supplementation or B12 in the past. Denies previous blood transfusion. States that her PCP put her on Eliquis approximately 2-3 months ago, she is unsure of the indication. Patient presented to the emergency department with complaints of shortness of breath and overall weakness, hemoglobin on admission 6.6. Patient reports that she had a colonoscopy possibly at the end of last year, and does not remember any abnormal findings. She also believes that she has had an EGD in the past secondary to complaints of dysphasia and is unsure of any findings in this as well. EGD (08/13/18) Mucosa of the stomach appeared normal. Stricture in the distal esophagus. Normal duodenal mucosa in the entire examined duodenum. Hiatal hernia Colonoscopy (08/13/18) Moderate diverticulosis in the entire examined colon. 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 (08/14/18) H/H trending up. No obvious bleeding. Discussed with pt, if she remains anemic to have outpatient capsule endoscopy. No clear indication for Eliquis that she was previously taken, resumption to be decided by primary team Plan Monitor H/H If remains anemic recommend outpatient capsule endoscopy Our service will sign off, please reconsult as needed have pt follow up with GI in 1-2 weeks This patient has been seen and examined by myself and Dr. Bassett and this note is written on his behalf <Shawnee Finn - Last Filed: 08/14/18 14:14> (1) Anemia Status: Acute Code(s): D64.9 - Anemia, unspecified (2) GI bleed Status: Acute Code(s): K92.2 - Gastrointestinal hemorrhage, unspecified - Attending Attestation Agree with above assessment and plan. Please notify us if needed again. <Donald Bassett - Last Filed: 08/14/18 15:43>
--- NOTE | 2018-08-14 17:51 | P.PNPL ---
Subjective Interval history: 77 YOWFw ith GIB, COPD Feels better Weaned to RA Ambulates Physical Exam Vital signs: Vital Signs 08/13/18 17:59 08/13/18 20:29 08/13/18 20:31 Temperature 98.6 F Pulse Rate 77 80 Respiratory Rate 18 20 Blood Pressure 130/60 Pulse Oximetry 97 94 L Pulse Oximetry [Exertion on Room Air] Pulse Oximetry [Resting on Room Air] Pulse Oximetry [Resting with Oxygen] 08/13/18 23:45 08/13/18 23:48 08/13/18 23:49 Temperature 98.1 F Pulse Rate 78 100 H Respiratory Rate 18 22 Blood Pressure 120/75 Pulse Oximetry 95 94 L Pulse Oximetry [Exertion on Room Air] Pulse Oximetry [Resting on Room Air] Pulse Oximetry [Resting with Oxygen] 08/14/18 04:35 08/14/18 05:26 08/14/18 05:30 Temperature 97.5 F L Pulse Rate 80 85 Respiratory Rate 18 23 Blood Pressure 151/67 H Pulse Oximetry 95 95 Pulse Oximetry [Exertion on Room Air] Pulse Oximetry [Resting on Room Air] Pulse Oximetry [Resting with Oxygen] 08/14/18 08:00 08/14/18 09:25 08/14/18 09:47 Temperature 98.1 F Pulse Rate 83 106 H Respiratory Rate 18 16 Blood Pressure 157/67 H Pulse Oximetry 94 L Pulse Oximetry [Exertion on Room Air] 91 L Pulse Oximetry [Resting on Room Air] 90 L Pulse Oximetry [Resting with Oxygen] 94 L 08/14/18 12:00 08/14/18 15:08 Temperature 97.7 F Pulse Rate 85 97 H Respiratory Rate 18 14 Blood Pressure 149/63 H Pulse Oximetry 94 L Pulse Oximetry [Exertion on Room Air] Pulse Oximetry [Resting on Room Air] Pulse Oximetry [Resting with Oxygen] Intake & Output 08/13/18 08/14/18 08/14/18 18:59 06:59 18:59 Intake Total 650 / 650 125 / 125 Balance 650 / 650 125 / 125 Weight 78.4 kg Intake: IV 150 / 150 Levaquin 750 mg Premix Inj 150 150 / 150 ML @ 100 mls/hr IV.SIG Q24H [facility] Rx#:[id number] Oral 125 / 125 Anesthesia Amount 500 / 500 Other: # Voids 1 4 Date of Last Bowel Movement 08/13/17 08/13/18 08/13/18 # Bowel Movements 1 GENERAL: Elderly WF, NAD SKIN: Warm and dry. HEAD: Normocephalic. EYES: No scleral icterus. No injection or drainage. NECK: Supple, trachea midline. No JVD or lymphadenopathy. CARDIOVASCULAR: Regular rate and rhythm without murmurs, gallops, or rubs. RESPIRATORY: Breath sounds equal bilaterally. No accessory muscle use. GASTROINTESTINAL: Abdomen soft, non-tender, nondistended. MUSCULOSKELETAL: No cyanosis, or edema. BACK: Nontender without obvious deformity. No CVA tenderness. Assessment and Plan - Plan IMPRESSION: 1. Chronic obstructive pulmonary disease with mild exacerbation. 2. Anemia. 3. Hypertension. 4. Hypothyroidism. PLAN: Aerosol nebs Check PFT monitor H/H Cont Abx IV Solumedrol DW pt and her son at BS
[2018-08-15] MEDS ORDERED: Metoprolol Inj 5 MG/5 ML Vial IV.PUSH ONE (01:46)
[2018-08-15] MEDS ORDERED: Sodium Chlor 0.9% Inj 500 ML IV.SIG SCH (02:42)
--- NOTE | 2018-08-15 02:57 | P.PNADD ---
Addendum to Inpatient Note Reason for Addendum: Additional Documentation Additional information: S: Ashwin called on patient at approximately 0240 for tachycardia. Per nursing staff, during vital sign check patient's heart rate reported to be in the 140s. EKG was ordered by attending medical team which showed atrial fibrillation with RVR. Per chart reviewed metoprolol was then given at approximately 0209. Ashwin was then called for continued tachycardia as patient's family became concerned. Patient states that initially she was sitting up in her chair when nursing staff first noticed her tachycardia. Patient denies any chest pain or palpitations symptomatically. She does endorse shortness of breath, however patient states that when she was transferred recliner to the bed she became short of breath "only due to how uncomfortable her bed is." Per report patient is admitted for anemia and possible CHF exacerbation versus COPD exacerbation. Of note, patient is chronically anticoagulated on Eliquis, however her nor her family can report the reason she is anticoagulated and she denies any known history of atrial fibrillation. O: Vitals: 114/76, 96% on 2 L nasal cannula with respiratory rate of approximately 18, rate irregular with tachycardia into the 130-140s on monitor GENERAL: Elderly female sitting up in bed in no acute distress communicating in full sentences without complaints. SKIN: Warm and dry. No rash. HEENT: Atraumatic, normocephalic with extraocular motions intact. No rhinorrhea. No visible lymphadenopathy or jugulovenous distension appreciated. CARDIOVASCULAR: Tachycardic rate with irregular rhythm consistent with atrial fibrillation on exam. No obvious MGR appreciated. 2+ pulses in all 4 extremities and are regular. RESPIRATORY: Clear to auscultation bilaterally with no crackles, wheezes, or rhonchi. No increased work of breathing at this time. Patient able to communicate in full sentences. GASTROINTESTINAL: Abdomen soft, non-tender, nondistended with positive bowel sounds. No masses appreciated. MUSCULOSKELETAL: No cyanosis. No calf tenderness. Patient with 1+ edema of the bilateral lower extremities. NEURO/PSYCH: Afocal. Awake, alert, and oriented x3. Normal speech and judgement. A/P: Mrs. Rhoades is a 77-year-old female admitted for anemia and CHF exacerbation versus COPD exacerbation presenting with atrial fibrillation with RVR. EKG showing atrial fibrillation with RVR Patient currently asymptomatic and is without acute complaints Patient previously administered 5 mg of metoprolol without conversion Admitting team notified who ordered diltiazem 10 mg IV push as well as 500 mL normal saline bolus prior to Halicat Plan for diltiazem drip for rate control and transfer to CICU without right conversion at this time Admitting team notified and will resume care at this time SDW: Dr. Gautam
[2018-08-15] MEDS: dilTIAZem Inj 125 MG in Sodium Chlor 0.9% Inj 100 ML IV.CONT PRN ×2 (03:56→12:41)
[2018-08-15] MEDS: Levothyroxine 50 MCG Tablet PO SCH (05:25)
[2018-08-15] MEDS: MethylPREDNISolone Sod Succinate Inj 40 MG/ML Vial IV.PUSH SCH ×3 (05:26→21:04)
[2018-08-15] MEDS: Fenofibrate 145 MG Tablet PO SCH (08:20)
[2018-08-15] MEDS: guaiFENesin 600 MG ER Tablet PO SCH ×2 (08:21→21:05)
--- NOTE | 2018-08-15 14:08 | ECG ---
Date Performed: 08/15/2018 Time Performed: 01:39:32 PTAGE: 77 years EKG: Atrial flutter with rapid ventricular response with 2:1 A-V block. Extensive ST-T changes m ay be due to myocardial ischemia Abnormal ECG NO PREVIOUS TRACING : 08/09/18 DOCTOR: Donald Barbosa Interpretating Date/Time 08/15/2018 14:06:02
--- NOTE | 2018-08-15 16:23 | P.PNIM ---
Subjective Interval history: Chief Complaint: Severe shortness of breath History of Present Illness: 77-year-old female with past medical history of hypertension presented to the ED for evaluation of worsening shortness of breath with minimal exertion times 3 weeks duration. She reports chronic shortness of breath over the past 2 years which has gotten worse recently. She was seen by her primary care physician's, and was prescribed Medrol Dosepak and a chest x- ray was ordered which has yet to be done. She presented today to the ED because shortness of breath is now worsening with only minimal exertion on walking less than few feet. Patient also complained of dry cough. Patient denies any chest pain or current GI bleed. In the ED, she was found to have H& H of 6.6/21.2 and a BNP of 420. Hemoccult was negative. Of note, patient is currently on Eliquis, however denies any history of DVT, PE or atrial fibrillation. 12-30 The patient is in the chair says she feels much better after the blood transfusion. Says she was able to walk to the bathroom however still with some shortness of breath. Says she is coughing and also she has noticed her voice has changed but that is all problem and I advised patient to follow-up with ENT as outpatient. She has a lower extremity edema. No wheezing at this time. No nausea or vomiting. Did not have a bowel movement. Says she does not know why she is taking Eliquis never had stroke, pulmonary embolism, A. fib or any arrhythmia and no DVT. Will discontinue Eliquis. 12- The patient appears in not acute distress. However she is still coughing and she has changing her voice or hoarseness and would like to see the ENT doctor as inpatient. Will consult ENT for evaluation. Patient also with severe iron deficiency will start Venofer IV. GI also consulted and plans for colonoscopy on Saturday. Patient still weak and with some shortness of breath however feeling better after she received blood transfusion. No nausea or vomiting. No diarrhea constipation. Has some lower extremity edema improving. 1-1 Ambulating says still with sob. Still with cough. No fever or chills. No n/ v. Has BMs as is taking Golytely No fever or chills. 1-2 Went for EGD and colonoscopy today. Patient was noted desaturating while in the procedures. Order stat chest x-ray, will start steroids and IV antibiotics Levaquin. We will add Mucinex as patient still with cough. No fever or chills. Abdominal pain improving SEEN BY ENT RECOMMENDED PROTONIX AND OUTPT FOLLOW UP 1-3 No much wheezing. No fever or chills. No n/v/d/c. Denies chest pain. S/P PFTs, patient with severe COPD. Patient is with some sob and is wheezing No abd pain at this time. 1-4 WENT INTO AFIB LAST NIGHT TRANSFERRED TO [facility] AND ON CARDIZEM DRIP FOR AFIB WITH RVR CONSULT CARDIOLOGY TRY TO WEAN OFF CARDIZEM DRIP ALREADY HAD AN ECHO THIS ADMISSION AM LABS CARDIZEM 30MG PO QID TRY TO WEAN OFF DRIP TREND TROPONINS Physical Exam Vital signs: Vital Signs 08/14/18 18:46 08/14/18 21:04 08/15/18 00:34 Temperature 97.8 F 98.3 F Pulse Rate 83 103 H 149 H Respiratory Rate 16 20 21 Blood Pressure 120/62 107/57 L Pulse Oximetry 93 L 93 L 08/15/18 02:45 08/15/18 03:20 08/15/18 03:40 Temperature Pulse Rate 144 H 140 H Respiratory Rate 20 Blood Pressure Pulse Oximetry 97 08/15/18 04:00 08/15/18 05:00 08/15/18 06:00 Temperature 98.0 F Pulse Rate 130 H 122 H 116 H Respiratory Rate 16 Blood Pressure 121/90 Pulse Oximetry 99 08/15/18 07:00 08/15/18 07:28 08/15/18 07:35 Temperature 97.9 F Pulse Rate 93 H 117 H Respiratory Rate 17 Blood Pressure 137/79 Pulse Oximetry 96 95 08/15/18 08:08 08/15/18 09:05 08/15/18 10:06 Temperature Pulse Rate 86 Respiratory Rate 17 Blood Pressure Pulse Oximetry 95 94 L 08/15/18 12:48 Temperature 98 F Pulse Rate 109 H Respiratory Rate 17 Blood Pressure 116/56 L Pulse Oximetry 96 Intake & Output 08/14/18 08/15/18 08/15/18 18:59 06:59 18:59 Intake Total 630 / 630 740 / 740 125 / 125 Output Total 200 / 200 Balance 630 / 630 540 / 540 125 / 125 Weight 80.4 kg Intake: IV 150 / 150 500 / 500 125 / 125 Cardizem Inj 125 MG In NS Inj 125 / 125 100 ML @ 5 MG/HR 5 mls/hr IV. CONT TITRATE PRN Rx#:[id number] Levaquin 750 mg Premix Inj 150 150 / 150 ML @ 100 mls/hr IV.SIG Q24H BRIDGETT Rx#:[id number] NS Inj 500 ML @ 1000 mls/hr IV. 500 / 500 SIG BOLUS BRIDGETT Rx#:[id number] Oral 480 / 480 240 / 240 Output: Urine 200 / 200 Other: # Voids 3 Date of Last Bowel Movement 08/13/18 08/13/18 08/14/18 # Bowel Movements 1 Narrative: GENERAL: Elderly female, appears in NAD Head is normocephalic atraumatic PERRLA EOMI No scleral icterus Tongue is midline oral mucosa is moist Neck is supple no obvious JVD CARDIOVASCULAR: IRRegular rate and rhythm. S1-S2 no S3 or S4 RESPIRATORY: No accessory muscle use. Clear to auscultation. Breath sounds equal bilaterally. GASTROINTESTINAL: Abdomen soft, non-tender, nondistended. Hepatic and splenic margins not palpable. MUSCULOSKELETAL: Extremities without clubbing, cyanosis, or edema. No obvious deformities. NEUROLOGICAL: Awake and alert. No obvious cranial nerve deficits. Motor grossly within normal limits. Five out of 5 muscle strength in the arms and legs. Normal speech. Insight and judgment is good Mood and behavior is appropriate Results - Labs CBC & Chem 7: 08/14/18 05:26 08/14/18 05:56 Laboratory Results - last 24 hr 08/15/18 02:42 POC Glucose 181 H - Imaging ITS Impressions Abdomen/Pelvis CT 08/09/18 10:27 CONCLUSION: 1. Calcific atherosclerotic vascular disease with calcified plaque identified at the origin of the celiac and superior mesenteric arteries. 2. Uncomplicated colonic diverticulosis. 3. No evidence of ileus, free air or abnormal fluid collections. 4. Status post cholecystectomy. Chest X-Ray 08/13/18 00:00 CONCLUSION: Moderate compensated cardiomegaly. Large hiatal hernia - Procedures Colonoscopy on August 13 IMPRESSIONS: 1. Moderate diverticulosis was noted throughout the entire examined colon 2. 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 Retroflexed views revealed internal hemorrhoids 4. Retroflexed views revealed large internal hemorrhoids 5. Was performed 6. Revealed no abnormalities of the rectum RECOMMENDATIONS: Monitor labs RECALL: Return 1 year Colonoscopy Colon prep poor EGD on August 13 IMPRESSIONS: 1. The mucosa of the stomach appeared normal 2. 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 Normal duodenal mucosa in the entire duodenum 4. Retroflexed views revealed a hiatal hernia RECOMMENDATIONS: Continue PPI PATIENT CONDITION: stable DISPOSITION: Inpatient REPEAT EXAM: Return as needed for EGD Assessment and Plan - Assessment (1) Anemia Code(s): D64.9 - Anemia, unspecified Status: Acute (2) GI bleed Code(s): K92.2 - Gastrointestinal hemorrhage, unspecified Status: Acute - Plan 67-year-old female with Patient went into A. fib with RVR last night Transferred to [facility] started on Cardizem drip Try to wean off Cardizem drip Start on p.o. Cardizem 30 mg p.o. 4 times daily Trend troponins and cardiac enzymes Consult cardiology Symptomatic anemia Severe iron deficiency Hemoccult negative S/p Transfusion 2 units of packed red blood cell, give Lasix IV x1 in between Check iron studies, ferritin, B12 level . B12 is normal. Patien thowever with severe iron deficienecy , start venofer IV , will start iron supplement [facility] the patient says she is not sure why she is taking it. Consult GI, plan for colonoscopy 09/12/18 H&H monitoring. So far H/H is stable . 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 Also moderate diverticulosis entire colon CHF with preserved EF exacerbation Moderate Mitral stenosis. Mild Aortic calcification BNP elevated on admission Chest x-ray reviewed mild cardiomegaly with Central vascular prominence Lasix 20 mg IV every 12 hours Strict I's and O's 2D echo nl EF and resume RODRI inhibitor Hold blood pressure medications if low blood pressure Dyspnea Acute respiratory distress. Noted 08/13/18 desaturating while in the procedures. Patient requiring oxygen and never been on oxygen before. Still shortness of breath. Will need walking test at discharge Multifactorial In The absence of chest pain, will hold on CTA pulmonary to r/o PE Treatment as an above 2D echo reviewed normal EF 55% DuoNeb as needed Add benny palomares Add IS repeat chest x-ray 08/13/18 Start IV antibiotic Levaquin Start Solu-Medrol Add Mucinex Consult pulmonology, appreciate recs. Plan for PFTs Hypertension Resume outpatient medications Abdominal pain Abdominal CT noted and reviewed by me without any evidence of ileus, free air or abnormal fluid collections Conservative management Chest x-ray with finding of Right infrahilar opacity which may represent subsegmental consolidation. However patient currently afebrile and no leukocytosis, therefore will hold on continue antibiotics Continue to monitor clinical response EGD/Colonoscopy 08/13/18 Hyperlipidemia Resume Lipitor Hypothyroidism Check TSH and free T4 Resume Synthroid Hoarseness: Consult ENT , seen by ENT to follow up as OP with ent upon discharge. DVT ppx scd.tds, hold chemical ppx due to anemia. Patient is currently on Eliquis however denies any history of PE, DVT or A. fib. Discontinue Eliquis Discussed with the patient, family at bedside very supportive, nurse. Code Status: Full code Discussed Condition With: RN and patient and son at bedside and case management Discharge Planning: Pending control of heart rate and clearance by cardiology, GI, and pulmonary
[2018-08-15] MEDS: Budesonide-Formoterol 160/4.5 MCG 6 GM Inhaler INH SCH ×2 (17:01→21:05)
[2018-08-15] MEDS: dilTIAZem 30 MG Tablet PO SCH ×2 (17:31→21:05)
[2018-08-15 17:37] LABS: Troponin I 0.05 ng/mL (0.02-0.05)
[2018-08-15 17:49] LABS: CKMB Percent 3.2 % (0.0-4.0); Creatine Kinase MB 6.3 ng/mL (0.5-3.6)
[2018-08-15] MEDS ORDERED: Amiodarone Inj 150 MG in Dextrose 5% in Water Inj 97 ML IV.SIG ONE ×2 (18:24)
--- NOTE | 2018-08-15 18:57 | MB ---
cc: Alexander Mitchell MD DATE: 08/15/2018 REASON FOR CONSULTATION: Atrial flutter. HISTORY OF PRESENT ILLNESS: The patient is a 77-year-old white female with a history of COPD, hypertension, hypothyroidism, sleep apnea, who initially presented to the hospital on 08/09/2018 due to acute on chronic shortness of breath, severe fatigue. She was found to be severely anemic and has been undergoing evaluation since admission. Upper endoscopy apparently showed only a hiatal hernia and a benign esophageal stricture. The patient states she continues to have considerable dyspnea even at rest. She denies chest pain, syncope, near syncope. The patient reports infrequent fluttering palpitations, which never last more than a few seconds. She has felt moderately lightheaded at times over the last 3 weeks. In addition, she has had mild to moderate pedal edema chronically, mostly dependent. PAST MEDICAL HISTORY: 1. COPD. 2. Hypertension. 3. Gastroesophageal reflux disease. 4. Hypothyroidism. 5. Sleep apnea. 6. Hiatal hernia and benign esophageal stricture on endoscopy this admission. PAST SURGICAL HISTORY: Cholecystectomy. CARDIAC MEDICATIONS AT HOME: 1. Crestor 40 mg daily. 2. Hydrochlorothiazide 25 mg daily. 3. Cardura 2 mg daily. 4. Lisinopril 20 mg daily. 5. Amlodipine 5 mg daily. 6. Fenofibrate 160 mg daily. 7. Apixaban 5 mg b.i.d. ALLERGIES: NO KNOWN DRUG ALLERGIES. FAMILY HISTORY: Noncontributory. SOCIAL HISTORY: The patient is a former smoker, although she quit smoking many many years ago. She denies alcohol abuse. REVIEW OF SYSTEMS: As in the history of present illness, otherwise negative or noncontributory. She also denies headache, abdominal pain, recent melena, fevers, wheezing. PHYSICAL EXAMINATION: VITAL SIGNS: Blood pressure 131/66, with a pulse of 105, respirations 17. GENERAL: She is a well-developed, well-nourished white female, in no acute distress. NECK: Jugular venous pressure is normal. Carotid pulses are 2+ bilaterally and without bruits. CHEST: Reveals diminished breath sounds diffusely. There are no definite rales or wheezes. CARDIAC: She has a regular rhythm and rate with a grade 2/6 systolic ejection murmur heard at the base of the heart. The S2 heart sound is normal. No gallop is audible. ABDOMEN: She has a soft, nontender abdomen. Bowel sounds are present. There is no definite hepatosplenomegaly. EXTREMITIES: Reveals no clubbing or cyanosis. There is 1+ pretibial edema bilaterally. DIAGNOSTIC DATA: EKG from 08/15/2018 at 1:39 a.m. shows atrial flutter with 2:1 AV conduction, nonspecific ST and T-wave abnormalities. Chest x-ray shows no acute disease. LABORATORY DATA: Includes WBC 5.8, hemoglobin 10.9, platelets 371. INR 1.1. Potassium 3.3, BUN 13, creatinine 0.94. Troponin 0.05. IMPRESSION: Paroxysmal atrial flutter in this 77-year-old white female with a history of COPD, hypertension, hypothyroidism, sleep apnea, admitted with severe anemia, shortness of breath. At this time, she is back in sinus rhythm. She was minimally symptomatic with the dysrhythmia (palpitations and increased shortness of breath). Overall, there is no definite evidence for acute coronary syndrome. There is also no evidence for congestive heart failure. Her echocardiogram this admission reportedly showed ejection fraction of 55-60% with no severe valvular abnormalities (although moderate mitral stenosis was reported). With respect to her thromboembolic risk, it is at least moderately elevated. The patient cannot recall why she has been taking Eliquis as an outpatient. RECOMMENDATIONS: 1. Continue oral Cardizem and try to wean off the intravenous Cardizem. 2. Start intravenous amiodarone to help maintain sinus rhythm, particularly as she cannot be placed on anticoagulation therapy at this time. 3. Daily baby aspirin if OK from a medical/GI standpoint. MD ELO Ng/parminder , 06:24 PM , 06:32 PM BYRON
--- NOTE | 2018-08-15 19:00 | P.PNPL ---
Subjective Interval history: 77 YOWFw ith GIB, COPD Feels better tr to [facility] due to Af with RVR Was on cardiazem, now on Po cardiazem Weak, mild sob Physical Exam Vital signs: Vital Signs 08/14/18 21:04 08/15/18 00:34 08/15/18 02:41 Temperature 97.8 F 98.3 F 98.1 F Pulse Rate 103 H 149 H 134 H Respiratory Rate 20 21 18 Blood Pressure 120/62 107/57 L 113/75 Pulse Oximetry 93 L 93 L 08/15/18 02:44 08/15/18 02:45 08/15/18 02:53 Temperature 97.8 F 97.9 F Pulse Rate 144 H 146 H Respiratory Rate 18 18 Blood Pressure 114/75 116/72 Pulse Oximetry 97 97 97 08/15/18 03:20 08/15/18 03:40 08/15/18 04:00 Temperature 98.0 F Pulse Rate 144 H 140 H 130 H Respiratory Rate 20 16 Blood Pressure 121/90 Pulse Oximetry 99 08/15/18 05:00 08/15/18 06:00 08/15/18 07:00 Temperature Pulse Rate 122 H 116 H 93 H Respiratory Rate Blood Pressure Pulse Oximetry 08/15/18 07:28 08/15/18 07:35 08/15/18 08:00 Temperature 97.9 F Pulse Rate 117 H 118 H Respiratory Rate 17 Blood Pressure 137/79 Pulse Oximetry 96 95 08/15/18 08:08 08/15/18 09:00 08/15/18 09:05 Temperature Pulse Rate 120 H Respiratory Rate Blood Pressure Pulse Oximetry 95 94 L 08/15/18 10:00 08/15/18 10:06 08/15/18 11:00 Temperature Pulse Rate 108 H 86 118 H Respiratory Rate 17 Blood Pressure Pulse Oximetry 08/15/18 12:00 08/15/18 12:48 08/15/18 13:00 Temperature 98 F Pulse Rate 132 H 109 H 108 H Respiratory Rate 17 Blood Pressure 116/56 L Pulse Oximetry 96 08/15/18 14:00 08/15/18 15:00 08/15/18 16:00 Temperature Pulse Rate 118 H 102 H 100 H Respiratory Rate Blood Pressure Pulse Oximetry 08/15/18 16:59 08/15/18 17:00 08/15/18 18:00 Temperature 98 F Pulse Rate 105 H 106 H 108 H Respiratory Rate 17 Blood Pressure 131/66 Pulse Oximetry 96 Intake & Output 08/14/18 08/15/18 08/15/18 18:59 06:59 18:59 Intake Total 630 / 630 740 / 740 125 / 125 Output Total 200 / 200 Balance 630 / 630 540 / 540 125 / 125 Weight 80.4 kg Intake: IV 150 / 150 500 / 500 125 / 125 Cardizem Inj 125 MG In NS Inj 125 / 125 100 ML @ 5 MG/HR 5 mls/hr IV. CONT TITRATE PRN Rx#:[id number] Levaquin 750 mg Premix Inj 150 150 / 150 ML @ 100 mls/hr IV.SIG Q24H BRIDGETT Rx#:[id number] NS Inj 500 ML @ 1000 mls/hr IV. 500 / 500 SIG BOLUS BRIDGETT Rx#:[id number] Oral 480 / 480 240 / 240 Output: Urine 200 / 200 Other: # Voids 3 Date of Last Bowel Movement 08/13/18 08/13/18 08/14/18 # Bowel Movements 1 GENERAL: Elderly WF, NAD SKIN: Warm and dry. HEAD: Normocephalic. EYES: No scleral icterus. No injection or drainage. NECK: Supple, trachea midline. No JVD or lymphadenopathy. CARDIOVASCULAR: Regular rate and rhythm without murmurs, gallops, or rubs. RESPIRATORY: Breath sounds equal bilaterally. No accessory muscle use. GASTROINTESTINAL: Abdomen soft, non-tender, nondistended. MUSCULOSKELETAL: No cyanosis, or edema. BACK: Nontender without obvious deformity. No CVA tenderness. Assessment and Plan - Plan IMPRESSION: 1. Chronic obstructive pulmonary disease with mild exacerbation. 2. Anemia. 3. Hypertension. 4. Hypothyroidism. 5. AF with RVR PLAN: Aerosol nebs Check PFT monitor H/H Cont Abx IV Solumedrol Cardiazem 30 mg po qid DW pt and her daughter at BS
[2018-08-15 23:10] LABS: Troponin I 0.05 ng/mL (0.02-0.05)
[2018-08-16] MEDS: MethylPREDNISolone Sod Succinate Inj 40 MG/ML Vial IV.PUSH SCH (05:04)
[2018-08-16] MEDS: Levothyroxine 50 MCG Tablet PO SCH (05:05)
[2018-08-16 07:24] LABS: Hematocrit 33.5 % (35.0-46.0); Hemoglobin 10.9 gm/dL (11.6-15.3); Mean Corpuscular HGB Conc 32.6 % (32.0-36.0); Mean Corpuscular Hemoglobin 25.7 pg (27.0-34.0); Mean Corpuscular Volume 78.7 fL (80.0-100.0); Mean Platelet Volume 8.3 fL (7.0-11.0); Platelet Count 287 th/mm3 (150-450); Red Blood Count 4.25 mil/mm3 (4.00-5.30); Red Cell Distribution Width 21.9 % (11.6-17.2); White Blood Count 8.7 th/mm3 (4.0-11.0)
[2018-08-16 07:40] LABS: Albumin 3.2 g/dL (3.4-5.0); Anion Gap 9 meq/L (5-15); Aspartate Aminotransferase 21 U/L (15-37); Blood Urea Nitrogen 23 mg/dL (7-18); Calcium 8.6 mg/dL (8.5-10.1); Carbon Dioxide 31.4 meq/L (21.0-32.0); Chloride 93 meq/L (98-107); Glomerular Filtration Rate 43 mL/min (>89); Glucose,Random 147 mg/dL (74-106); Magnesium 2.1 mg/dL (1.5-2.5); Potassium 3.4 meq/L (3.5-5.1); Sodium 133 meq/L (136-145)
[2018-08-16 07:49] LABS: Alanine Aminotransferase 22 U/L (10-53); Alkaline Phosphatase 47 U/L (45-117); Creatine Kinase 139 U/L (26-192); Phosphorus 3.4 mg/dL (2.5-4.9); Total Protein 6.6 g/dL (6.4-8.2); Troponin I 0.03 ng/mL (0.02-0.05)
[2018-08-16 08:23] LABS: Lymphocytes 4 % (9-44); Metamyelocytes 1 % (0-1); Monocytes 5 % (0-8)
[2018-08-16 08:24] LABS: Ovalocytes 1+; Platelet Estimate Normal (Normal); Platelet Morphology Clumped (Normal)
[2018-08-16] MEDS: dilTIAZem 30 MG Tablet PO SCH ×2 (09:21→12:00)
[2018-08-16] MEDS: Fenofibrate 145 MG Tablet PO SCH (09:21)
[2018-08-16] MEDS: guaiFENesin 600 MG ER Tablet PO SCH ×2 (09:21→20:44)
[2018-08-16] MEDS: Budesonide-Formoterol 160/4.5 MCG 6 GM Inhaler INH SCH ×2 (09:23→20:44)
[2018-08-16 12:37] LABS: Hemoglobin A1c 5.8 % (4.3-6.0)
--- NOTE | 2018-08-16 13:37 | P.PNCA ---
Subjective Interval history: Denies CP, dizziness, palpitations, PND. Ambulated without difficulty earlier today. Medications and Allergies Active Medications: Active Medications Acetaminophen (Tylenol) 650 mg PO Q4H PRN PRN Reason: Temp > 100.4 Acetaminophen/Codeine Phosphate (Tylenol-Codeine 120/12 Liq) 10 ml PO Q6H PRN PRN Reason: severe cough Al Hydroxide/Mg Hydroxide (Milk Of Magnesia Liq) 30 ml PO Q12H PRN PRN Reason: Mild Constipation Last Admin: 08/10/18 20:18 Dose: 30 ml Albuterol (Duoneb Neb (Prn)) 1 ampul NEB Q2HR NEB PRN PRN Reason: SHORTNESS OF BREATH Last Admin: 08/15/18 10:03 Dose: 1 ampul Aspirin (Aspirin Chew) 81 mg PO DAILY [facility] Last Admin: 08/16/18 10:44 Dose: 81 mg Atorvastatin Calcium (Lipitor) 80 mg PO DAILY [facility] Last Admin: 08/16/18 09:22 Dose: 80 mg Benzonatate (Tessalon Perles) 100 mg PO Q8H PRN PRN Reason: COUGH Last Admin: 08/14/18 18:33 Dose: 100 mg Budesonide/Formoterol Fumarate (Symbicort 160/4.5 Mcg Inh) 2 puff INH BID [facility] Last Admin: 08/16/18 09:23 Dose: 2 puff Cetirizine HCl (Zyrtec) 10 mg PO DAILY [facility] Last Admin: 08/16/18 09:22 Dose: 10 mg Diltiazem HCl (Cardizem Cd 24hr) 180 mg PO DAILY [facility] Doxazosin Mesylate (Cardura) 2 mg PO DAILY [facility] Last Admin: 08/16/18 09:22 Dose: 2 mg Fenofibrate (Tricor) 145 mg PO DAILY [facility] Last Admin: 08/16/18 09:21 Dose: 145 mg Furosemide (Lasix Inj) 40 mg IV.PUSH ONCE PRN PRN Reason: Inbetween PRBC units Last Admin: 08/09/18 18:00 Dose: 40 mg Furosemide (Lasix Inj) 40 mg IV.PUSH BID@0900,1800 [facility] Last Admin: 08/16/18 09:22 Dose: 40 mg Guaifenesin (Mucinex Er) 600 mg PO BID [facility] Last Admin: 08/16/18 09:21 Dose: 600 mg Sodium Chloride (Ns Inj) 500 mls @ 30 mls/hr IV.SIG .Q10H [facility] Last Admin: 08/13/18 16:56 Dose: Not Given Levofloxacin/Dextrose (Levaquin 750 Mg Premix Inj) 150 mls @ 100 mls/hr IV.SIG Q24H [facility] Last Infusion: 08/15/18 19:07 Dose: Infused Amiodarone HCl 450 mg/ (Dextrose) 250 mls @ 33.33 mls/hr IV.CONT TITRATE PRN; Protocol PRN Reason: Per Protocol Stop: 08/17/18 10:00 Last Titration: 08/16/18 05:16 Dose: 0.5 mg/min, 16.66 mls/hr Levothyroxine Sodium (Synthroid) 50 mcg PO DAILY@0600 [facility] Last Admin: 08/16/18 05:05 Dose: 50 mcg Methylprednisolone Sodium Succinate (Solumedrol Inj) 40 mg IV.PUSH Q8HR [facility] Last Admin: 08/16/18 05:04 Dose: 40 mg Ondansetron HCl (Zofran Inj) 4 mg IV.PUSH Q6H PRN PRN Reason: NAUSEA OR VOMITING Pantoprazole Sodium (Protonix) 40 mg PO BID [facility] Potassium Chloride (Klor-Con 10) 20 meq PO BID [facility] Sodium Chloride (Ns Flush) 2 ml IV.FLUSH BID [facility] Last Admin: 08/16/18 09:22 Dose: 2 ml Sodium Chloride (Ns Flush) 2 ml IV.FLUSH PRN PRN PRN Reason: FLUSH AFTER USING IV ACCESS Last Admin: 08/15/18 02:09 Dose: 2 ml Allergies Allergy/AdvReac Type Severity Reaction Status Date / Time No Known Allergies Allergy Verified 08/09/18 09:08 Home Medications Medication Instructions Recorded Confirmed Type amlodipine 5 mg PO DAILY 08/09/18 08/09/18 History apixaban [Eliquis] 5 mg PO BID 08/09/18 08/09/18 History benzonatate 100 mg PO TID PRN 08/09/18 08/09/18 History cetirizine 10 mg PO DAILY 08/09/18 08/09/18 History doxazosin 2 mg PO DAILY 08/09/18 08/09/18 History fenofibrate 160 mg PO DAILY 08/09/18 08/09/18 History hydrochlorothiazide 25 mg PO DAILY 08/09/18 08/09/18 History levothyroxine 50 mcg PO DAILY 08/09/18 08/09/18 History lisinopril 20 mg PO DAILY 08/09/18 08/09/18 History pantoprazole 40 mg PO DAILY 08/09/18 08/09/18 History rosuvastatin 40 mg PO DAILY 08/09/18 08/09/18 History Physical Exam Vital signs: Vital Signs 08/15/18 14:00 08/15/18 15:00 08/15/18 16:00 Temperature Pulse Rate 118 H 102 H 100 H Respiratory Rate Blood Pressure Pulse Oximetry 08/15/18 16:59 08/15/18 17:00 08/15/18 18:00 Temperature 98 F Pulse Rate 105 H 106 H 108 H Respiratory Rate 17 Blood Pressure 131/66 Pulse Oximetry 96 08/15/18 19:00 08/15/18 20:00 08/15/18 21:00 Temperature 98.2 F Pulse Rate 74 68 80 Respiratory Rate 20 Blood Pressure 119/58 L Pulse Oximetry 97 08/15/18 21:10 08/15/18 22:00 08/15/18 23:00 Temperature Pulse Rate 82 85 Respiratory Rate Blood Pressure Pulse Oximetry 96 08/16/18 00:00 08/16/18 01:00 08/16/18 02:00 Temperature 98 F Pulse Rate 89 82 80 Respiratory Rate 18 Blood Pressure 141/84 H Pulse Oximetry 96 08/16/18 03:00 08/16/18 04:00 08/16/18 05:00 Temperature 98.4 F Pulse Rate 76 73 79 Respiratory Rate 18 Blood Pressure 155/83 H Pulse Oximetry 95 08/16/18 05:59 08/16/18 07:00 08/16/18 08:00 Temperature Pulse Rate 75 73 98 H Respiratory Rate Blood Pressure Pulse Oximetry 08/16/18 08:21 08/16/18 08:22 08/16/18 09:00 Temperature 97.7 F Pulse Rate 84 94 H Respiratory Rate 17 Blood Pressure 146/85 H Pulse Oximetry 96 96 08/16/18 10:00 08/16/18 11:00 08/16/18 12:00 Temperature Pulse Rate 100 H 75 82 Respiratory Rate Blood Pressure Pulse Oximetry 08/16/18 12:35 Temperature 98 F Pulse Rate 96 H Respiratory Rate 17 Blood Pressure 126/62 Pulse Oximetry 96 Intake & Output 08/15/18 08/16/18 08/16/18 18:59 06:59 18:59 Intake Total 365 / 365 1105 / 1105 Output Total 200 / 200 700 / 700 Balance 165 / 165 405 / 405 Weight 80.8 kg Intake: IV 125 / 125 625 / 625 Cordarone Inj 450 MG In D5W Inj 250 / 250 241 ML @ 1 MG/MIN 33.33 mls/hr IV.CONT TITRATE PRN Rx#: [id number] Cardizem Inj 125 MG In NS Inj 125 / 125 125 / 125 100 ML @ 5 MG/HR 5 mls/hr IV. CONT TITRATE PRN Rx#:[id number] Cordarone Inj 150 MG In D5W Inj 100 / 100 97 ML @ 600 mls/hr IV.SIG ONCE ONE Rx#:[id number] Levaquin 750 mg Premix Inj 150 150 / 150 ML @ 100 mls/hr IV.SIG Q24H [facility] Rx#:[id number] Oral 240 / 240 480 / 480 Output: Urine 200 / 200 700 / 700 Other: Date of Last Bowel Movement 08/14/18 # Bowel Movements 0 - Constitutional no acute distress - Routine Neck Exam Absent: JVD - Routine Respiratory Exam Present: decreased breath sounds. Absent: wheezes - Routine Cardiovascular Exam Present: RRR, S1, S2, murmur. Absent: gallop Comments: II/ ALVIN base with normal S2. - Routine Abdominal Exam Present: soft, normoactive bowel sounds. Absent: tenderness, organomegaly - Routine Extremities Exam Present: edema. Absent: cyanosis, clubbing Comments: Trace edema. Results 08/16/18 06:31 08/16/18 06:31 Cardiac Enzymes 08/15/18 08/15/18 08/16/18 Range/Units 16:53 22:26 06:31 AST 21 (15-37) U/L CK-MB (CK-2) 6.3 H (0.5-3.6) ng/mL Troponin I 0.05 0.05 0.03 (0.02-0.05) ng/mL CBC 08/16/18 Range/Units 06:31 WBC 8.7 (4.0-11.0) th/mm3 RBC 4.25 (4.00-5.30) mil/mm3 Hgb 10.9 L (11.6-15.3) gm/dL Hct 33.5 L (35.0-46.0) % Plt Count 287 (150-450) th/mm3 Comprehensive Metabolic Panel 08/16/18 Range/Units 06:31 Sodium 133 L (136-145) meq/L Potassium 3.4 L (3.5-5.1) meq/L Chloride 93 L (98-107) meq/L Carbon Dioxide 31.4 (21.0-32.0) meq/L BUN 23 H (7-18) mg/dL Creatinine 1.21 H (0.50-1.00) mg/dL Calcium 8.6 (8.5-10.1) mg/dL AST 21 (15-37) U/L ALT 22 (10-53) U/L Alkaline Phosphatase 47 (45-117) U/L Total Protein 6.6 (6.4-8.2) g/dL Albumin 3.2 L (3.4-5.0) g/dL Intake and Output 08/15/18 08/16/18 08/16/18 22:59 06:59 14:59 Intake Total 515 / 515 830 / 830 Output Total 200 / 200 700 / 700 Balance 315 / 315 130 / 130 Intake: IV 275 / 275 350 / 350 Cordarone Inj 450 MG In D5W Inj 250 / 250 241 ML @ 1 MG/MIN 33.33 mls/hr IV.CONT TITRATE PRN Rx#: [id number] Cardizem Inj 125 MG In NS Inj 125 / 125 100 ML @ 5 MG/HR 5 mls/hr IV. CONT TITRATE PRN Rx#:[id number] Cordarone Inj 150 MG In D5W Inj 100 / 100 97 ML @ 600 mls/hr IV.SIG ONCE ONE Rx#:[id number] Levaquin 750 mg Premix Inj 150 150 / 150 ML @ 100 mls/hr IV.SIG Q24H [facility] Rx#:[id number] Oral 240 / 240 480 / 480 Output: Urine 200 / 200 700 / 700 Other: # Bowel Movements 0 Weight 80.8 kg Assessment and Plan - Assessment (1) Paroxysmal atrial flutter Code(s): I48.92 - Unspecified atrial flutter Status: Acute Plan: Stable overnight. No further atrial flutter. Occasional fleeting salvoes of what appears to be atrial tachycardia. Patient asymptomatic. Recommend change diltiazem to CD form, continue IV Amiodarone 24 more hours. Recommend baby aspirin when/if OK from GI standpoint. (2) Hypertension Code(s): I10 - Essential (primary) hypertension Status: Chronic Plan: Stable at present. Normotensive. - Plan Code Status: full code Discussed Condition With: patient and family (2) Hypertension Qualifiers: Hypertension type: essential hypertension Qualified Code(s): I10 - Essential (primary) hypertension
--- NOTE | 2018-08-16 15:21 | P.PNPL ---
Subjective Interval history: 77 YOWFw ith GIB, COPD Feels better Feels much better on Po cardiazem Weak, mild sob Weaned to RA Physical Exam Vital signs: Vital Signs 08/15/18 16:00 08/15/18 16:59 08/15/18 17:00 Temperature 98 F Pulse Rate 100 H 105 H 106 H Respiratory Rate 17 Blood Pressure 131/66 Pulse Oximetry 96 08/15/18 18:00 08/15/18 19:00 08/15/18 20:00 Temperature 98.2 F Pulse Rate 108 H 74 68 Respiratory Rate 20 Blood Pressure 119/58 L Pulse Oximetry 97 08/15/18 21:00 08/15/18 21:10 08/15/18 22:00 Temperature Pulse Rate 80 82 Respiratory Rate Blood Pressure Pulse Oximetry 96 08/15/18 23:00 08/16/18 00:00 08/16/18 01:00 Temperature 98 F Pulse Rate 85 89 82 Respiratory Rate 18 Blood Pressure 141/84 H Pulse Oximetry 96 08/16/18 02:00 08/16/18 03:00 08/16/18 04:00 Temperature 98.4 F Pulse Rate 80 76 73 Respiratory Rate 18 Blood Pressure 155/83 H Pulse Oximetry 95 08/16/18 05:00 08/16/18 05:59 08/16/18 07:00 Temperature Pulse Rate 79 75 73 Respiratory Rate Blood Pressure Pulse Oximetry 08/16/18 08:00 08/16/18 08:21 08/16/18 08:22 Temperature 97.7 F Pulse Rate 98 H 84 Respiratory Rate 17 Blood Pressure 146/85 H Pulse Oximetry 96 96 08/16/18 09:00 08/16/18 10:00 08/16/18 11:00 Temperature Pulse Rate 94 H 100 H 75 Respiratory Rate Blood Pressure Pulse Oximetry 08/16/18 12:00 08/16/18 12:35 08/16/18 14:50 Temperature 98 F Pulse Rate 82 96 H 85 Respiratory Rate 17 16 Blood Pressure 126/62 Pulse Oximetry 96 Intake & Output 08/15/18 08/16/18 08/16/18 18:59 06:59 18:59 Intake Total 365 / 365 1105 / 1105 Output Total 200 / 200 700 / 700 Balance 165 / 165 405 / 405 Weight 80.8 kg Intake: IV 125 / 125 625 / 625 Cordarone Inj 450 MG In D5W Inj 250 / 250 241 ML @ 1 MG/MIN 33.33 mls/hr IV.CONT TITRATE PRN Rx#: [id number] Cardizem Inj 125 MG In NS Inj 125 / 125 125 / 125 100 ML @ 5 MG/HR 5 mls/hr IV. CONT TITRATE PRN Rx#:[id number] Cordarone Inj 150 MG In D5W Inj 100 / 100 97 ML @ 600 mls/hr IV.SIG ONCE ONE Rx#:[id number] Levaquin 750 mg Premix Inj 150 150 / 150 ML @ 100 mls/hr IV.SIG Q24H [facility] Rx#:[id number] Oral 240 / 240 480 / 480 Output: Urine 200 / 200 700 / 700 Other: Date of Last Bowel Movement 08/14/18 # Bowel Movements 0 GENERAL: Elderly WF NAD SKIN: Warm and dry. HEAD: Normocephalic. EYES: No scleral icterus. No injection or drainage. NECK: Supple, trachea midline. No JVD or lymphadenopathy. CARDIOVASCULAR: Regular rate and rhythm without murmurs, gallops, or rubs. RESPIRATORY: Breath sounds equal bilaterally. No accessory muscle use. GASTROINTESTINAL: Abdomen soft, non-tender, nondistended. MUSCULOSKELETAL: No cyanosis, or edema. BACK: Nontender without obvious deformity. No CVA tenderness. Assessment and Plan - Plan IMPRESSION: 1. Chronic obstructive pulmonary disease with mild exacerbation. 2. Anemia. 3. Hypertension. 4. Hypothyroidism. 5. AF with RVR PLAN: Aerosol nebs monitor H/H Cont Abx DC Solumedrol Prednisone 20 mg bid. Cardiazem 30 mg po qid DW pt and her daughter at BS
--- NOTE | 2018-08-16 15:52 | P.PNIM ---
Subjective Interval history: 77-year-old female with past medical history of hypertension presented to the ED for evaluation of worsening shortness of breath with minimal exertion times 3 weeks duration. She reports chronic shortness of breath over the past 2 years which has gotten worse recently. She was seen by her primary care physician's, and was prescribed Medrol Dosepak and a chest x- ray was ordered which has yet to be done. She presented today to the ED because shortness of breath is now worsening with only minimal exertion on walking less than few feet. Patient also complained of dry cough. Patient denies any chest pain or current GI bleed. In the ED, she was found to have H& H of 6.6/21.2 and a BNP of 420. Hemoccult was negative. Of note, patient is currently on Eliquis, however denies any history of DVT, PE or atrial fibrillation. 12-30 The patient is in the chair says she feels much better after the blood transfusion. Says she was able to walk to the bathroom however still with some shortness of breath. Says she is coughing and also she has noticed her voice has changed but that is all problem and I advised patient to follow-up with ENT as outpatient. She has a lower extremity edema. No wheezing at this time. No nausea or vomiting. Did not have a bowel movement. Says she does not know why she is taking Eliquis never had stroke, pulmonary embolism, A. fib or any arrhythmia and no DVT. Will discontinue Eliquis. 12-31 The patient appears in not acute distress. However she is still coughing and she has changing her voice or hoarseness and would like to see the ENT doctor as inpatient. Will consult ENT for evaluation. Patient also with severe iron deficiency will start Venofer IV. GI also consulted and plans for colonoscopy on Saturday. Patient still weak and with some shortness of breath however feeling better after she received blood transfusion. No nausea or vomiting. No diarrhea constipation. Has some lower extremity edema improving. 1-1 Ambulating says still with sob. Still with cough. No fever or chills. No n/ v. Has BMs as is taking Golytely No fever or chills. 1-2 Went for EGD and colonoscopy today. Patient was noted desaturating while in the procedures. Order stat chest x-ray, will start steroids and IV antibiotics Levaquin. We will add Mucinex as patient still with cough. No fever or chills. Abdominal pain improving SEEN BY ENT RECOMMENDED PROTONIX AND OUTPT FOLLOW UP 1-3 No much wheezing. No fever or chills. No n/v/d/c. Denies chest pain. S/P PFTs, patient with severe COPD. Patient is with some sob and is wheezing No abd pain at this time. 1-4 WENT INTO AFIB LAST NIGHT TRANSFERRED TO [facility] AND ON CARDIZEM DRIP FOR AFIB WITH RVR CONSULT CARDIOLOGY TRY TO WEAN OFF CARDIZEM DRIP ALREADY HAD AN ECHO THIS ADMISSION AM LABS CARDIZEM 30MG PO QID TRY TO WEAN OFF DRIP TREND TROPONINS 1-5 BREATHING BETTER HEART RATE BETTER CONTROLLED ON PO CARDIZEM DW RN AND PT AND SON CONTINUED ON AMIODARONE DRIP PER CARDIOLOGY SWITCH TO LONG ACTING CARDIZEM SEEN BY PULMONARY SWITCHED TO PO PREDNISONE AM LABS Physical Exam Vital signs: Vital Signs 08/15/18 16:00 08/15/18 16:59 08/15/18 17:00 Temperature 98 F Pulse Rate 100 H 105 H 106 H Respiratory Rate 17 Blood Pressure 131/66 Pulse Oximetry 96 08/15/18 18:00 08/15/18 19:00 08/15/18 20:00 Temperature 98.2 F Pulse Rate 108 H 74 68 Respiratory Rate 20 Blood Pressure 119/58 L Pulse Oximetry 97 08/15/18 21:00 08/15/18 21:10 08/15/18 22:00 Temperature Pulse Rate 80 82 Respiratory Rate Blood Pressure Pulse Oximetry 96 08/15/18 23:00 08/16/18 00:00 08/16/18 01:00 Temperature 98 F Pulse Rate 85 89 82 Respiratory Rate 18 Blood Pressure 141/84 H Pulse Oximetry 96 08/16/18 02:00 08/16/18 03:00 08/16/18 04:00 Temperature 98.4 F Pulse Rate 80 76 73 Respiratory Rate 18 Blood Pressure 155/83 H Pulse Oximetry 95 08/16/18 05:00 08/16/18 05:59 08/16/18 07:00 Temperature Pulse Rate 79 75 73 Respiratory Rate Blood Pressure Pulse Oximetry 08/16/18 08:00 08/16/18 08:21 08/16/18 08:22 Temperature 97.7 F Pulse Rate 98 H 84 Respiratory Rate 17 Blood Pressure 146/85 H Pulse Oximetry 96 96 08/16/18 09:00 08/16/18 10:00 08/16/18 11:00 Temperature Pulse Rate 94 H 100 H 75 Respiratory Rate Blood Pressure Pulse Oximetry 08/16/18 12:00 08/16/18 12:35 08/16/18 14:50 Temperature 98 F Pulse Rate 82 96 H 85 Respiratory Rate 17 16 Blood Pressure 126/62 Pulse Oximetry 96 Intake & Output 08/15/18 08/16/18 08/16/18 18:59 06:59 18:59 Intake Total 365 / 365 1105 / 1105 Output Total 200 / 200 700 / 700 Balance 165 / 165 405 / 405 Weight 80.8 kg Intake: IV 125 / 125 625 / 625 Cordarone Inj 450 MG In D5W Inj 250 / 250 241 ML @ 1 MG/MIN 33.33 mls/hr IV.CONT TITRATE PRN Rx#: [id number] Cardizem Inj 125 MG In NS Inj 125 / 125 125 / 125 100 ML @ 5 MG/HR 5 mls/hr IV. CONT TITRATE PRN Rx#:[id number] Cordarone Inj 150 MG In D5W Inj 100 / 100 97 ML @ 600 mls/hr IV.SIG ONCE ONE Rx#:[id number] Levaquin 750 mg Premix Inj 150 150 / 150 ML @ 100 mls/hr IV.SIG Q24H [facility] Rx#:[id number] Oral 240 / 240 480 / 480 Output: Urine 200 / 200 700 / 700 Other: Date of Last Bowel Movement 08/14/18 # Bowel Movements 0 Narrative: GENERAL: Elderly female, appears in NAD Head is normocephalic atraumatic PERRLA EOMI No scleral icterus Tongue is midline oral mucosa is moist Neck is supple no obvious JVD CARDIOVASCULAR: IRRegular rate and rhythm. S1-S2 no S3 or S4 RESPIRATORY: No accessory muscle use. Clear to auscultation. Breath sounds equal bilaterally. GASTROINTESTINAL: Abdomen soft, non-tender, nondistended. Hepatic and splenic margins not palpable. MUSCULOSKELETAL: Extremities without clubbing, cyanosis, or edema. No obvious deformities. NEUROLOGICAL: Awake and alert. No obvious cranial nerve deficits. Motor grossly within normal limits. Five out of 5 muscle strength in the arms and legs. Normal speech. Insight and judgment is good Mood and behavior is appropriate Results - Labs CBC & Chem 7: 08/16/18 06:31 08/16/18 06:31 Laboratory Results - last 24 hr 08/15/18 08/15/18 08/15/18 16:38 16:53 22:26 WBC RBC Hgb Hct MCV MCH MCHC RDW Plt Count MPV Prelim Diff (Auto) WBC Differential Seg Neuts % (Manual) Band Neuts % (Manual) Lymphocytes % (Manual) Monocytes % (Manual) Metamyelocytes % (Man) Abs Neuts (Manual) Differential Comment Platelet Estimate Platelet Morphology Ovalocytes Sodium Potassium Chloride Carbon Dioxide Anion Gap BUN Creatinine Estimated GFR POC Glucose 144 H Random Glucose Hemoglobin A1c Calcium Phosphorus Magnesium Total Bilirubin AST ALT Alkaline Phosphatase Total Creatine Kinase 194 H 172 CK-MB (CK-2) 6.3 H CK-MB (CK-2) % 3.2 Troponin I 0.05 0.05 Total Protein Albumin 08/16/18 08/16/18 08/16/18 06:31 06:31 06:31 WBC 8.7 RBC 4.25 Hgb 10.9 L Hct 33.5 L MCV 78.7 L MCH 25.7 L MCHC 32.6 RDW 21.9 H Plt Count 287 MPV 8.3 Prelim Diff (Auto) Manual diff required WBC Differential Manual diff final Seg Neuts % (Manual) 87 H Band Neuts % (Manual) 3 Lymphocytes % (Manual) 4 L Monocytes % (Manual) 5 Metamyelocytes % (Man) 1 Abs Neuts (Manual) 7.9 H Differential Comment . Platelet Estimate Normal Platelet Morphology Clumped H Ovalocytes 1+ H Sodium 133 L Potassium 3.4 L Chloride 93 L Carbon Dioxide 31.4 Anion Gap 9 BUN 23 H Creatinine 1.21 H Estimated GFR 43 L POC Glucose Random Glucose 147 H Hemoglobin A1c 5.8 Calcium 8.6 Phosphorus 3.4 Magnesium 2.1 Total Bilirubin 0.5 AST 21 ALT 22 Alkaline Phosphatase 47 Total Creatine Kinase 139 CK-MB (CK-2) CK-MB (CK-2) % Troponin I 0.03 Total Protein 6.6 Albumin 3.2 L - Imaging ITS Impressions Abdomen/Pelvis CT 08/09/18 10:27 CONCLUSION: 1. Calcific atherosclerotic vascular disease with calcified plaque identified at the origin of the celiac and superior mesenteric arteries. 2. Uncomplicated colonic diverticulosis. 3. No evidence of ileus, free air or abnormal fluid collections. 4. Status post cholecystectomy. Chest X-Ray 08/13/18 00:00 CONCLUSION: Moderate compensated cardiomegaly. Large hiatal hernia - Procedures Colonoscopy on August 13 IMPRESSIONS: 1. Moderate diverticulosis was noted throughout the entire examined colon 2. 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 Retroflexed views revealed internal hemorrhoids 4. Retroflexed views revealed large internal hemorrhoids 5. Was performed 6. Revealed no abnormalities of the rectum RECOMMENDATIONS: Monitor labs RECALL: Return 1 year Colonoscopy Colon prep poor EGD on August 13 IMPRESSIONS: 1. The mucosa of the stomach appeared normal 2. 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 Normal duodenal mucosa in the entire duodenum 4. Retroflexed views revealed a hiatal hernia RECOMMENDATIONS: Continue PPI PATIENT CONDITION: stable DISPOSITION: Inpatient REPEAT EXAM: Return as needed for EGD Assessment and Plan - Assessment (1) Anemia Code(s): D64.9 - Anemia, unspecified Status: Acute (2) GI bleed Code(s): K92.2 - Gastrointestinal hemorrhage, unspecified Status: Acute - Plan 67-year-old female with Patient went into A. fib with RVR last night Transferred to [facility] started on Cardizem drip Try to wean off Cardizem drip Start on p.o. Cardizem 30 mg p.o. 4 times daily- SWITCH TO 180MG CD Trend troponins and cardiac enzymes Consult cardiology Symptomatic anemia Severe iron deficiency Hemoccult negative S/p Transfusion 2 units of packed red blood cell, give Lasix IV x1 in between Check iron studies, ferritin, B12 level . B12 is normal. Patien thowever with severe iron deficienecy , start venofer IV , will start iron supplement also to have at [facility], the patient says she is not sure why she is taking it. Consult GI, plan for colonoscopy 09/12/18 H&H monitoring. So far H/H is stable . 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 Also moderate diverticulosis entire colon CHF with preserved EF exacerbation Moderate Mitral stenosis. Mild Aortic calcification BNP elevated on admission Chest x-ray reviewed mild cardiomegaly with Central vascular prominence Lasix 20 mg IV every 12 hours Strict I's and O's 2D echo nl EF and resume RODRI inhibitor Hold blood pressure medications if low blood pressure Dyspnea Acute respiratory distress. Noted 08/13/18 desaturating while in the procedures. Patient requiring oxygen and never been on oxygen before. Still shortness of breath. Will need walking test at discharge Multifactorial In The absence of chest pain, will hold on CTA pulmonary to r/o PE Treatment as an above 2D echo reviewed normal EF 55% DuoNeb as needed Add tessallon pearles Add IS repeat chest x-ray 08/13/18 IV antibiotic Levaquin PO STEROIDS NOW Add Mucinex Consult pulmonology, appreciate recs. Plan for PFTs Hypertension Resume outpatient medications Abdominal pain Abdominal CT noted and reviewed by me without any evidence of ileus, free air or abnormal fluid collections Conservative management Chest x-ray with finding of Right infrahilar opacity which may represent subsegmental consolidation. However patient currently afebrile and no leukocytosis, therefore will hold on continue antibiotics Continue to monitor clinical response EGD/Colonoscopy 08/13/18 Hyperlipidemia Resume Lipitor Hypothyroidism Check TSH and free T4 Resume Synthroid Hoarseness: Consult ENT , seen by ENT to follow up as OP with ent upon discharge. DVT ppx scd.tds, hold chemical ppx due to anemia. Patient is currently on Eliquis however denies any history of PE, DVT or A. fib. Discontinue Eliquis Discussed with the patient, family at bedside very supportive, nurse. Code Status: FULL CODE Discussed Condition With: RN AND PT AND CM Discharge Planning: Pending control of heart rate and clearance by cardiology, GI, and pulmonary
[2018-08-16] MEDS: predniSONE 10 MG Tablet PO SCH (17:56)
[2018-08-16] MEDS: dilTIAZem CD 180 MG Capsule PO SCH (23:38)
[2018-08-17] MEDS: Levothyroxine 50 MCG Tablet PO SCH (05:07)
[2018-08-17 05:24] VITALS: RESP 16
[2018-08-17] MEDS: MethylPREDNISolone Sod Succinate Inj 40 MG/ML Vial IV.PUSH SCH (07:46)
[2018-08-17 07:51] LABS: Baso % (Auto) 0.2 % (0.0-2.0); Hemoglobin 10.7 gm/dL (11.6-15.3); Lymph # (Auto) 0.8 th/mm3 (1.0-4.8); Lymph % (Auto) 8.8 % (9.0-44.0); Mean Corpuscular HGB Conc 32.5 % (32.0-36.0); Mean Corpuscular Hemoglobin 25.8 pg (27.0-34.0); Mean Corpuscular Volume 79.3 fL (80.0-100.0); Mean Platelet Volume 7.8 fL (7.0-11.0); Mono # (Auto) 1.3 th/mm3 (0.0-0.9); Neut # (Auto) 7.1 th/mm3 (1.8-7.7); Platelet Count 346 th/mm3 (150-450); Red Blood Count 4.16 mil/mm3 (4.00-5.30); Red Cell Distribution Width 22.4 % (11.6-17.2); White Blood Count 9.2 th/mm3 (4.0-11.0)
[2018-08-17 08:23] LABS: Alanine Aminotransferase 22 U/L (10-53); Alkaline Phosphatase 42 U/L (45-117); Anion Gap 6 meq/L (5-15); Aspartate Aminotransferase 20 U/L (15-37); Blood Urea Nitrogen 25 mg/dL (7-18); Calcium 8.7 mg/dL (8.5-10.1); Carbon Dioxide 30.7 meq/L (21.0-32.0); Chloride 96 meq/L (98-107); Glomerular Filtration Rate 40 mL/min (>89); Glucose,Random 129 mg/dL (74-106); Magnesium 2.1 mg/dL (1.5-2.5); Phosphorus 2.6 mg/dL (2.5-4.9); Potassium 4.2 meq/L (3.5-5.1); Sodium 133 meq/L (136-145); Total Protein 6.1 g/dL (6.4-8.2)
[2018-08-17] MEDS: predniSONE 10 MG Tablet PO SCH ×3 (08:54→17:23)
[2018-08-17] MEDS: Budesonide-Formoterol 160/4.5 MCG 6 GM Inhaler INH SCH (08:56)
[2018-08-17] MEDS: guaiFENesin 600 MG ER Tablet PO SCH (08:56)
[2018-08-17] MEDS: Fenofibrate 145 MG Tablet PO SCH (08:56)
[2018-08-17] MEDS: dilTIAZem CD 180 MG Capsule PO SCH (08:57)
[2018-08-17 10:14] LABS: Dimorphic RBC Present; Ovalocytes 1+
--- NOTE | 2018-08-17 12:32 | P.PNCA ---
Subjective Interval history: Denies dyspnea, dizziness, CP, nausea, constipation, palpitations. Slept well. Medications and Allergies Active Medications: Active Medications Acetaminophen (Tylenol) 650 mg PO Q4H PRN PRN Reason: Temp > 100.4 Acetaminophen/Codeine Phosphate (Tylenol-Codeine 120/12 Liq) 10 ml PO Q6H PRN PRN Reason: severe cough Al Hydroxide/Mg Hydroxide (Milk Of Magnesia Liq) 30 ml PO Q12H PRN PRN Reason: Mild Constipation Last Admin: 08/10/18 20:18 Dose: 30 ml Albuterol (Duoneb Neb (Prn)) 1 ampul NEB Q2HR NEB PRN PRN Reason: SHORTNESS OF BREATH Last Admin: 08/16/18 19:43 Dose: 1 ampul Aspirin (Aspirin Chew) 81 mg PO DAILY [facility] Last Admin: 08/17/18 08:55 Dose: 81 mg Atorvastatin Calcium (Lipitor) 80 mg PO DAILY [facility] Last Admin: 08/17/18 08:55 Dose: 80 mg Benzonatate (Tessalon Perles) 100 mg PO Q8H PRN PRN Reason: COUGH Last Admin: 08/14/18 18:33 Dose: 100 mg Budesonide/Formoterol Fumarate (Symbicort 160/4.5 Mcg Inh) 2 puff INH BID [facility] Last Admin: 08/17/18 08:56 Dose: 2 puff Cetirizine HCl (Zyrtec) 10 mg PO DAILY [facility] Last Admin: 08/17/18 09:47 Dose: Not Given Diltiazem HCl (Cardizem Cd 24hr) 180 mg PO DAILY [facility] Last Admin: 08/17/18 08:57 Dose: 180 mg Doxazosin Mesylate (Cardura) 2 mg PO DAILY [facility] Last Admin: 08/17/18 08:54 Dose: 2 mg Fenofibrate (Tricor) 145 mg PO DAILY [facility] Last Admin: 08/17/18 08:56 Dose: 145 mg Furosemide (Lasix Inj) 40 mg IV.PUSH ONCE PRN PRN Reason: Inbetween PRBC units Last Admin: 08/09/18 18:00 Dose: 40 mg Furosemide (Lasix Inj) 40 mg IV.PUSH BID@0900,1800 [facility] Last Admin: 08/17/18 09:39 Dose: Not Given Guaifenesin (Mucinex Er) 600 mg PO BID [facility] Last Admin: 08/17/18 08:56 Dose: 600 mg Sodium Chloride (Ns Inj) 500 mls @ 30 mls/hr IV.SIG .Q10H [facility] Last Admin: 08/13/18 16:56 Dose: Not Given Levofloxacin/Dextrose (Levaquin 750 Mg Premix Inj) 150 mls @ 100 mls/hr IV.SIG Q24H [facility] Last Infusion: 08/16/18 18:25 Dose: Infused Levothyroxine Sodium (Synthroid) 50 mcg PO DAILY@0600 [facility] Last Admin: 08/17/18 05:07 Dose: 50 mcg Ondansetron HCl (Zofran Inj) 4 mg IV.PUSH Q6H PRN PRN Reason: NAUSEA OR VOMITING Pantoprazole Sodium (Protonix) 40 mg PO BID [facility] Last Admin: 08/17/18 08:54 Dose: 40 mg Potassium Chloride (Klor-Con 10) 20 meq PO BID [facility] Last Admin: 08/17/18 08:55 Dose: 20 meq Prednisone (Deltasone) 10 mg PO TID [facility] Last Admin: 08/17/18 08:54 Dose: 10 mg Sodium Chloride (Ns Flush) 2 ml IV.FLUSH BID [facility] Last Admin: 08/16/18 20:43 Dose: 2 ml Sodium Chloride (Ns Flush) 2 ml IV.FLUSH PRN PRN PRN Reason: FLUSH AFTER USING IV ACCESS Last Admin: 08/15/18 02:09 Dose: 2 ml Allergies Allergy/AdvReac Type Severity Reaction Status Date / Time No Known Allergies Allergy Verified 08/09/18 09:08 Home Medications Medication Instructions Recorded Confirmed Type amlodipine 5 mg PO DAILY 08/09/18 08/09/18 History apixaban [Eliquis] 5 mg PO BID 08/09/18 08/09/18 History benzonatate 100 mg PO TID PRN 08/09/18 08/09/18 History cetirizine 10 mg PO DAILY 08/09/18 08/09/18 History doxazosin 2 mg PO DAILY 08/09/18 08/09/18 History fenofibrate 160 mg PO DAILY 08/09/18 08/09/18 History hydrochlorothiazide 25 mg PO DAILY 08/09/18 08/09/18 History levothyroxine 50 mcg PO DAILY 08/09/18 08/09/18 History lisinopril 20 mg PO DAILY 08/09/18 08/09/18 History pantoprazole 40 mg PO DAILY 08/09/18 08/09/18 History rosuvastatin 40 mg PO DAILY 08/09/18 08/09/18 History Physical Exam Vital signs: Vital Signs 08/16/18 12:35 08/16/18 13:00 08/16/18 14:00 Temperature 98 F Pulse Rate 96 H 88 74 Respiratory Rate 17 Blood Pressure 126/62 Pulse Oximetry 96 08/16/18 14:50 08/16/18 15:00 08/16/18 16:00 Temperature Pulse Rate 85 77 84 Respiratory Rate 16 Blood Pressure Pulse Oximetry 08/16/18 17:00 08/16/18 17:53 08/16/18 18:00 Temperature 98.3 F Pulse Rate 78 95 H 94 H Respiratory Rate 17 Blood Pressure 145/71 H Pulse Oximetry 95 08/16/18 19:00 08/16/18 19:48 08/16/18 20:00 Temperature 98.0 F Pulse Rate 88 83 112 H Respiratory Rate 18 18 Blood Pressure 140/80 Pulse Oximetry 96 95 08/16/18 21:00 08/16/18 22:00 08/16/18 23:00 Temperature Pulse Rate 92 H 80 84 Respiratory Rate Blood Pressure Pulse Oximetry 08/17/18 00:00 08/17/18 01:00 08/17/18 02:00 Temperature 97.9 F Pulse Rate 82 82 82 Respiratory Rate 14 Blood Pressure 137/62 Pulse Oximetry 96 08/17/18 03:00 08/17/18 04:00 08/17/18 05:00 Temperature 98.0 F Pulse Rate 84 91 H 72 Respiratory Rate 16 Blood Pressure 129/58 L Pulse Oximetry 93 L 08/17/18 06:00 08/17/18 07:00 08/17/18 08:00 Temperature 97.5 F L Pulse Rate 80 94 H 82 Respiratory Rate 16 Blood Pressure 117/55 L Pulse Oximetry 95 08/17/18 09:00 08/17/18 09:44 Temperature Pulse Rate 82 Respiratory Rate Blood Pressure Pulse Oximetry 95 Intake & Output 08/16/18 08/17/18 08/17/18 18:59 06:59 18:59 Intake Total 870 / 870 490 / 490 Output Total 780 / 780 Balance 90 / 90 490 / 490 Weight 79.5 kg Intake: IV 150 / 150 250 / 250 Cordarone Inj 450 MG In D5W Inj 250 / 250 241 ML @ 1 MG/MIN 33.33 mls/hr IV.CONT TITRATE PRN Rx#: [id number] Levaquin 750 mg Premix Inj 150 150 / 150 ML @ 100 mls/hr IV.SIG Q24H [facility] Rx#:[id number] Oral 720 / 720 240 / 240 Output: Urine 780 / 780 Other: # Voids 2 Date of Last Bowel Movement 08/16/18 08/16/18 08/16/18 # Bowel Movements 1 - Constitutional no acute distress - Routine Neck Exam Absent: JVD - Routine Respiratory Exam Present: wheezes - Routine Cardiovascular Exam Present: RRR, S1, S2, murmur. Absent: gallop Comments: II/ ALVIN base. Normal S2. - Routine Abdominal Exam Present: soft, normoactive bowel sounds. Absent: tenderness, organomegaly - Routine Extremities Exam Absent: cyanosis, clubbing, edema Results 08/17/18 06:50 08/17/18 06:50 Cardiac Enzymes 08/15/18 08/15/18 08/16/18 Range/Units 16:53 22:26 06:31 AST 21 (15-37) U/L CK-MB (CK-2) 6.3 H (0.5-3.6) ng/mL Troponin I 0.05 0.05 0.03 (0.02-0.05) ng/mL 08/17/18 Range/Units 06:50 AST 20 (15-37) U/L CK-MB (CK-2) (0.5-3.6) ng/mL Troponin I (0.02-0.05) ng/mL CBC 08/16/18 08/17/18 Range/Units 06:31 06:50 WBC 8.7 9.2 (4.0-11.0) th/mm3 RBC 4.25 4.16 (4.00-5.30) mil/mm3 Hgb 10.9 L 10.7 L (11.6-15.3) gm/dL Hct 33.5 L 33.0 L (35.0-46.0) % Plt Count 287 346 (150-450) th/mm3 Neut # (Auto) 7.1 (1.8-7.7) th/mm3 Lymph # (Auto) 0.8 L (1.0-4.8) th/mm3 [place] # (Auto) 1.3 H (0.0-0.9) th/mm3 Eos # (Auto) 0.0 (0.0-0.4) th/mm3 Baso # (Auto) 0.0 (0.0-0.2) th/mm3 Comprehensive Metabolic Panel 08/16/18 08/17/18 Range/Units 06:31 06:50 Sodium 133 L 133 L (136-145) meq/L Potassium 3.4 L 4.2 D (3.5-5.1) meq/L Chloride 93 L 96 L (98-107) meq/L Carbon Dioxide 31.4 30.7 (21.0-32.0) meq/L BUN 23 H 25 H (7-18) mg/dL Creatinine 1.21 H 1.29 H (0.50-1.00) mg/dL Calcium 8.6 8.7 (8.5-10.1) mg/dL AST 21 20 (15-37) U/L ALT 22 22 (10-53) U/L Alkaline Phosphatase 47 42 L (45-117) U/L Total Protein 6.6 6.1 L (6.4-8.2) g/dL Albumin 3.2 L 3.0 L (3.4-5.0) g/dL Intake and Output 08/16/18 08/17/18 08/17/18 22:59 06:59 14:59 Intake Total 1120 / 1120 240 / 240 Output Total 780 / 780 Balance 340 / 340 240 / 240 Intake: IV 400 / 400 Cordarone Inj 450 MG In D5W Inj 250 / 250 241 ML @ 1 MG/MIN 33.33 mls/hr IV.CONT TITRATE PRN Rx#: [id number] Levaquin 750 mg Premix Inj 150 150 / 150 ML @ 100 mls/hr IV.SIG Q24H [facility] Rx#:[id number] Oral 720 / 720 240 / 240 Output: Urine 780 / 780 Other: # Voids 2 Date of Last Bowel Movement 08/16/18 08/16/18 08/16/18 # Bowel Movements 1 Weight 79.5 kg Assessment and Plan - Assessment (1) Paroxysmal atrial flutter Code(s): I48.92 - Unspecified atrial flutter Status: Acute Plan: Stable overnight. No further atrial flutter. Rare fleeting salvoes of what appears to be atrial tachycardia. Patient asymptomatic. Recommend continue Cardizem CD, change to oral Amiodarone, continue daily baby aspirin. OK for discharge from cardiac standpoint. (2) Hypertension Code(s): I10 - Essential (primary) hypertension Status: Chronic Plan: Stable at present. Normotensive. - Plan Code Status: full code Discussed Condition With: patient (2) Hypertension Qualifiers: Hypertension type: essential hypertension Qualified Code(s): I10 - Essential (primary) hypertension
[2018-08-17] MEDS ORDERED: Amiodarone 200 MG Tablet PO SCH (12:45)
[2018-08-17 16:39] VITALS: BP 124/57; TEMP 97.9; O2SAT 95
[2018-08-17 17:10] VITALS: PULSE 84
--- NOTE | 2018-08-17 17:16 | P.PNPL ---
Subjective Interval history: 77 YOWFw ith GIB, COPD Feels much better on Po cardiazem Weak, mild sob Weaned to RA Family at BS Physical Exam Vital signs: Vital Signs 08/16/18 17:53 08/16/18 18:00 08/16/18 19:00 Temperature 98.3 F Pulse Rate 95 H 94 H 88 Respiratory Rate 17 Blood Pressure 145/71 H Pulse Oximetry 95 08/16/18 19:48 08/16/18 20:00 08/16/18 21:00 Temperature 98.0 F Pulse Rate 83 112 H 92 H Respiratory Rate 18 18 Blood Pressure 140/80 Pulse Oximetry 96 95 08/16/18 22:00 08/16/18 23:00 08/17/18 00:00 Temperature 97.9 F Pulse Rate 80 84 82 Respiratory Rate 14 Blood Pressure 137/62 Pulse Oximetry 96 08/17/18 01:00 08/17/18 02:00 08/17/18 03:00 Temperature Pulse Rate 82 82 84 Respiratory Rate Blood Pressure Pulse Oximetry 08/17/18 04:00 08/17/18 05:00 08/17/18 06:00 Temperature 98.0 F Pulse Rate 91 H 72 80 Respiratory Rate 16 Blood Pressure 129/58 L Pulse Oximetry 93 L 08/17/18 07:00 08/17/18 08:00 08/17/18 09:00 Temperature 97.5 F L Pulse Rate 94 H 82 82 Respiratory Rate 16 Blood Pressure 117/55 L Pulse Oximetry 95 08/17/18 09:44 08/17/18 10:00 08/17/18 11:00 Temperature Pulse Rate 76 86 Respiratory Rate Blood Pressure Pulse Oximetry 95 08/17/18 12:00 08/17/18 12:37 08/17/18 13:00 Temperature 98 F Pulse Rate 98 H 85 86 Respiratory Rate 16 Blood Pressure 132/65 Pulse Oximetry 96 08/17/18 14:00 08/17/18 15:00 08/17/18 16:00 Temperature Pulse Rate 78 83 80 Respiratory Rate Blood Pressure Pulse Oximetry 08/17/18 16:32 08/17/18 16:38 08/17/18 17:00 Temperature 97.9 F Pulse Rate 94 H 75 84 Respiratory Rate 16 16 Blood Pressure 124/57 L Pulse Oximetry 95 Intake & Output 08/16/18 08/17/18 08/17/18 18:59 06:59 18:59 Intake Total 870 / 870 490 / 490 220 / 220 Output Total 780 / 780 Balance 90 / 90 490 / 490 220 / 220 Weight 79.5 kg Intake: IV 150 / 150 250 / 250 220 / 220 Cordarone Inj 450 MG In D5W Inj 250 / 250 220 / 220 241 ML @ 1 MG/MIN 33.33 mls/hr IV.CONT TITRATE PRN Rx#: [id number] Levaquin 750 mg Premix Inj 150 150 / 150 ML @ 100 mls/hr IV.SIG Q24H [facility] Rx#:[id number] Oral 720 / 720 240 / 240 Output: Urine 780 / 780 Other: # Voids 2 Date of Last Bowel Movement 08/16/18 08/16/18 08/17/18 # Bowel Movements 1 GENERAL: Elderly WF, NAD SKIN: Warm and dry. HEAD: Normocephalic. EYES: No scleral icterus. No injection or drainage. NECK: Supple, trachea midline. No JVD or lymphadenopathy. CARDIOVASCULAR: Regular rate and rhythm without murmurs, gallops, or rubs. RESPIRATORY: Breath sounds equal bilaterally. No accessory muscle use. GASTROINTESTINAL: Abdomen soft, non-tender, nondistended. MUSCULOSKELETAL: No cyanosis, or edema. BACK: Nontender without obvious deformity. No CVA tenderness. Assessment and Plan - Plan IMPRESSION: 1. Chronic obstructive pulmonary disease with mild exacerbation. 2. Anemia. 3. Hypertension. 4. Hypothyroidism. 5. AF with RVR PLAN: Aerosol nebs Cont Abx Prednisone 20 mg bid. Cardiazem 30 mg po qid DC plans underway Stable from Pulm standpoint.
--- NOTE | 2018-08-17 17:36 | P.DS ---
DS: Providers Date of admission: 08/09/18 15:12 Primary care physician: UNKNOWN Consults: 08/13/18 13:59 Consult to Pulmonology Routine Consulting Provider: Abran Walker Reason for Consultation: acute respiratory failure Notified:: Office Spoke with:: Geraldo Date Notified:: 08/13/18 Time Notified:: 14:06 Ordering Provider: FLORA 08/15/18 16:05 Consult to Cardiology Routine Consulting Provider: Alexander Mitchell Does the patient have a Automatic Winder Operator who follows them?: No Preferred Print Traffic Manager:: Metal Engineering Process Worker Physician Reason for Consultation: AFIB ON CARDIZEM DRIP Notified:: Office Spoke with:: Christianne Date Notified:: 08/15/18 Time Notified:: 16:25 Ordering Provider: YULY 08/09/18 13:25 HUB Only Consult Order Routine Consulting Provider: Shelby Ryan 08/10/18 16:30 Consult to Gastroenterology Routine Consulting Provider: Donald Bassett Reason for Consultation: anemia ,poss GI bleed Notified:: Service Spoke with:: JOESPH Date Notified:: 08/10/18 Time Notified:: 16:34 Ordering Provider: FLORA 08/11/18 16:22 Consult to ENT Routine Consulting Provider: Cornelius Pearce Reason for Consultation: hoarseness Notified:: Service Spoke with:: TOMASA Date Notified:: 08/11/18 Time Notified:: 16:30 Ordering Provider: FLORA Brief History from admission: 77-year-old female with past medical history of hypertension presented to the ED for evaluation of worsening shortness of breath with minimal exertion times 3 weeks duration. She reports chronic shortness of breath over the past 2 years which has gotten worse recently. She was seen by her primary care physician's, and was prescribed Medrol Dosepak and a chest x- ray was ordered which has yet to be done. She presented today to the ED because shortness of breath is now worsening with only minimal exertion on walking less than few feet. Patient also complained of dry cough. Patient denies any chest pain or current GI bleed. In the ED, she was found to have H& H of 6.6/21.2 and a BNP of 420. Hemoccult was negative. Of note, patient is currently on Eliquis, however denies any history of DVT, PE or atrial fibrillation. DS: Diagnosis Discharge Diagnosis (1) Paroxysmal atrial flutter: Status: Acute (2) Hypertension: Status: Chronic DS: Summary ISSUES ADDRESSED DURING THIS HOSPITALIZATION: 1.Symptomatic anemia: Hemoglobin on admission was 6.6g/dl.Eliquis was stopped. Hemoccult was negative. Patient was transfused with 2 prbc. Work up was in keeping with iron deficiency. GI team consulted, patient underwent EGD/Colonoscopy 08/13/18 EGD reveal hiatal hernia and duodenal stricture Colonoscopy revealed AV malformation 8 mm, Argon plasma coagulation was applied . Also moderate diverticulosis entire colon. Hemoglobin stabilized in the 10's. Patient should follow up with GI within 2 weeks of discharge for re-evaluation. Capsule endoscopy can be considered in the outpatient setting if anemia persists. 2.HFpEF with acute exacerbation BNP elevated on admission,CXR revealed mild cardiomegaly with Central vascular prominence.2D echo-normal EF 55% Patient was diuresed with IV Lasix, and responded appropriately. 3. Atrial flutter with rapid ventricular rate: Cardiology consulted. Patient was initially placed on Amiodarone drip, and started on PO Cardizem. Rate controlled was achieved. Patient was discharged on Cardizem and PO Amiodarone. Given recent possibility of GI bleed and significant anemia requiring transfusion, Eliquis has been stopped. Patient started on Aspirin 81mg. She will call to make a follow up appt with the dictaphone typist. 4. COPD exacerbation: Patient developed acute respiratory distress on 08/13/18 desaturating while having procedures, and she had a new oxygen requirement. Patient requiring oxygen and never been on oxygen before. Nutrition Partner was consulted. She was started on DUONEBS, Methyl Prednisone, Levofloxacin, Oxygen by nasal canula. Incentive spirometry was encouraged. PFTs done were in keeping with severe COPD. Symbicort started. Patient completed 5 days of Levofloxacin, clinically improved, was switched to oral prednisone taper, oxygen was successfully weaned off. She is to follow up with assistant site manager in the outpatient setting. 5.Hoarseness:seen by ENT to follow up as outpatient upon discharge. Time Spent with Patient Total time spent providing and/or coordinating discharge services:>30 minutes. Quality: VTE Deep Vein Thrombosis/Pulmonary Embolism Present on Admission: No Results Procedures completed during hospitalization: Colonoscopy on August 13 IMPRESSIONS: 1. Moderate diverticulosis was noted throughout the entire examined colon 2. 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 Retroflexed views revealed internal hemorrhoids 4. Retroflexed views revealed large internal hemorrhoids 5. Was performed 6. Revealed no abnormalities of the rectum RECOMMENDATIONS: Monitor labs RECALL: Return 1 year Colonoscopy Colon prep poor EGD on August 13 IMPRESSIONS: 1. The mucosa of the stomach appeared normal 2. 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 Normal duodenal mucosa in the entire duodenum 4. Retroflexed views revealed a hiatal hernia RECOMMENDATIONS: Continue PPI PATIENT CONDITION: stable DISPOSITION: Inpatient REPEAT EXAM: Return as needed for EGD Labs on day of discharge: Labs from last 24 hours 08/17/18 08/17/18 06:50 06:50 WBC 9.2 RBC 4.16 Hgb 10.7 L Hct 33.0 L MCV 79.3 L MCH 25.8 L MCHC 32.5 RDW 22.4 H Plt Count 346 MPV 7.8 Prelim Diff (Auto) Slide review pending Neut % (Auto) 77.0 H Lymph % (Auto) 8.8 L [place] % (Auto) 14.0 H Eos % (Auto) 0.0 Baso % (Auto) 0.2 Neut # (Auto) 7.1 Lymph # (Auto) 0.8 L [place] # (Auto) 1.3 H Eos # (Auto) 0.0 Baso # (Auto) 0.0 WBC Differential . Diff Scan Auto diff confirmed Differential Comment . Dimorphic RBCs Present H Ovalocytes 1+ H Sodium 133 L Potassium 4.2 D Chloride 96 L Carbon Dioxide 30.7 Anion Gap 6 BUN 25 H Creatinine 1.29 H Estimated GFR 40 L Random Glucose 129 H Calcium 8.7 Phosphorus 2.6 Magnesium 2.1 Total Bilirubin 0.5 AST 20 ALT 22 Alkaline Phosphatase 42 L Total Protein 6.1 L Albumin 3.0 L Impressions ITS Impressions Abdomen/Pelvis CT 08/09/18 10:27 CONCLUSION: 1. Calcific atherosclerotic vascular disease with calcified plaque identified at the origin of the celiac and superior mesenteric arteries. 2. Uncomplicated colonic diverticulosis. 3. No evidence of ileus, free air or abnormal fluid collections. 4. Status post cholecystectomy. Chest X-Ray 08/13/18 00:00 CONCLUSION: Moderate compensated cardiomegaly. Large hiatal hernia Discharge Plan Discharge Disposition Patient Disposition: Discharge Home Discharge Order Discharge Orders: Discharge Order (Routine); Ordered 08/17/18 Ordered By: Holli Dove Cardiology Clear for Discharge (Routine); Ordered 08/17/18 Ordered By: Alexander Mitchell Discharge Details Anticipated Discharge Date: 08/17/18 Physicians Team ED Provider: Jeff Gomez Primary Care Provider: UNKNOWN, Attending Provider: Holli Dove Other Providers: Shelby Ryan ; Donald Bassett ; Cornelius Pearce ; Abran Walker ; Alexander Mitchell Rxs /Orders / Referrals /Forms Prescriptions: New diltiazem HCl [Cardizem CD] 180 mg Capsule,Extended Release 24hr 180 mg PO DAILY Qty: 30 RF: 1 amiodarone 200 mg Tablet 200 mg PO DAILY Qty: 30 RF: 1 aspirin 81 mg Tablet,Chewable 81 mg PO DAILY Qty: 30 RF: 1 prednisone 10 mg Tablet 10 mg PO DAILY Qty: 12 RF: 0 pantoprazole 40 mg Tablet,Delayed Release (Dr/Ec) 40 mg PO BID Qty: 60 RF: 1 potassium chloride [Klor-Con 10] 10 mEq Tablet Extended Release 20 meq PO DAILY Qty: 7 RF: 0 budesonide-formoterol [Symbicort] 160-4.5 mcg/actuation Hfa Aerosol Inhaler 2 puff INH BID 30 Days Qty: 1 RF: 2 guaifenesin [Mucinex] 600 mg Tablet Extended Release 12hr 600 mg PO BID 7 Days Qty: 14 RF: 0 albuterol sulfate 90 mcg/actuation HFA aerosol inhaler 1 inh INHALATION Q4-6H PRN (Reason: shortness of breath or wheezing) Qty: 18 RF: 2 furosemide [Lasix] 40 mg tablet 40 mg PO DAILY Qty: 30 RF: 0 Continue cetirizine 10 mg Tablet 10 mg PO DAILY RF: 0 benzonatate 100 mg Capsule 100 mg PO TID PRN (Reason: Cough) RF: 0 levothyroxine 50 mcg Tablet 50 mcg PO DAILY RF: 0 doxazosin 2 mg Tablet 2 mg PO DAILY RF: 0 rosuvastatin 40 mg Tablet 40 mg PO DAILY RF: 0 fenofibrate 160 mg Tablet 160 mg PO DAILY RF: 0 pantoprazole 40 mg Tablet,Delayed Release (Dr/Ec) 40 mg PO DAILY RF: 0 Discontinued lisinopril 20 mg Tablet 20 mg PO DAILY RF: 0 amlodipine 5 mg Tablet 5 mg PO DAILY RF: 0 apixaban [Eliquis] 5 mg Tablet 5 mg PO BID RF: 0 hydrochlorothiazide 25 mg Tablet 25 mg PO DAILY RF: 0 Referrals: Abran Walker MD [Physician] - See Instructions Cornelius Pearce MD [Physician] - See Instructions ( Please call the physician 's office to book the appointment to be seen within [1 week ].) Alexander Mitchell MD [Physician] - See Instructions Donald Bassett MD [Physician] - See Instructions ( Please call the physician's office to book the appointment to be seen within [2 weeks].) UNKNOWN, [Primary Care Provider] - See Instructions ( Please call the physician's office to book the appointment to be seen within [2-3 days ]. Follow up with your PCP doctor ) Discharge Instructions Patient Printed Instructions: Diltiazem (By mouth), Furosemide (By mouth), Albuterol (By breathing), Prednisone (By mouth), Potassium Chloride (By mouth), Aspirin (By mouth), Amiodarone (By mouth), Pantoprazole (By mouth), Budesonide/ Formoterol (By breathing), A-fib (Atrial Fibrillation) (DC), Iron Deficiency Anemia (DC), Colonoscopy (DC) Additional Instructions: You presented to the hospital with shortness of breath and general weakness. You were found to be anemic with your hemoglobin on admission being 6.6g/dl, you required blood transfusion your hemoglobin improved to the 10's range after transfusion. Eliquis was discontinued because of anemia. You have been started on Baby Aspirin instead. GI doctor was consulted and you underwent EGD and colonoscopy which did not show any active bleeding. You will need to follow with GI doctor in 1-2 weeks after discharge for re-evaluation. For your shortness of breath you were found to have some volume overload, and also COPD exacerbation and received treatment for both, your condition has improved. You have been started on Prednisone tapering course, complete dose as prescribed. You have also been started on Lasix, take as prescribed. HCTZ and Lisinopril have been stopped. Your doctor may elect to restart Lisinopril if your blood pressure becomes elevated. You suffered episodes of Atrial flutter with rapid ventricular rates and was treated with Amiodarone and Diltiazem by the dictaphone typist, your heart rate has improved. Prescriptions have been given for these medication. Status ED Status: Left Department Discharge Information Discharge Date/Time: 08/17/18 18:42
== END 2018-08-17 18:42 | disposition home or self-care (01) | DRG 811 ==
LOC: NEPE 09:03 → INTOOBSV 12:45 → NEDA 12:45 → N06 14:55 → HCIS 08-15 03:07
PROVIDERS: ADMIT Hospitalist; ATTEND Hospitalist
PROC: PANENDO (2018-08-13 11:29)
PROC: COLONOS (2018-08-13 11:29)
DX: R06.03 Acute respiratory distress; R10.9 Unspecified abdominal pain; Z82.49 Family history of ischemic heart disease and other diseases of the circulatory system; D50.9 Iron deficiency anemia, unspecified; K44.9 Diaphragmatic hernia without obstruction or gangrene; Z79.01 Long term (current) use of anticoagulants; Z79.899 Other long term (current) drug therapy; Z79.890 Hormone replacement therapy; K21.9 Gastro-esophageal reflux disease without esophagitis; E78.5 Hyperlipidemia, unspecified; K64.8 Other hemorrhoids; Z90.49 Acquired absence of other specified parts of digestive tract; J04.0 Acute laryngitis; G47.30 Sleep apnea, unspecified; I50.33 Acute on chronic diastolic (congestive) heart failure; I11.0 Hypertensive heart disease with heart failure; Z87.891 Personal history of nicotine dependence; E03.9 Hypothyroidism, unspecified; K22.2 Esophageal obstruction; J44.1 Chronic obstructive pulmonary disease with (acute) exacerbation; K55.20 Angiodysplasia of colon without hemorrhage; I70.0 Atherosclerosis of aorta; I48.91 Unspecified atrial fibrillation; E78.00 Pure hypercholesterolemia, unspecified; I48.92 Unspecified atrial flutter; K57.30 Diverticulosis of large intestine without perforation or abscess without bleeding; I05.0 Rheumatic mitral stenosis
CPT/HCPCS: 36430; 36600; 71010; 71020; 71045; 71046; 74177; 76937; 80048; 80053; 82550; 82552; 82607; 82728; 82805; 82948; 82962; 83036; 83520; 83540; 83550; 83735; 83880; 84100; 84439; 84443; 84484; 85025; 85610; 85730; 86850; 86900; 86901; 86923; 90765; 90767; 93005; 93306; 94060; 94150; 94618; 94620; 94640; 94664; 94665; 96365; 96367; 97110; 97116; 97161; 97166; 99285; J0282; J0456; J0696; J1756; J1940; J1956; J2920; J7040; J7050; J7060; J7120; J7506; J7512; P9016; Q9967